=== PATIENT | male | born 1935 | race Hispanic/Latino ===

== ENCOUNTER 2016-12-27 00:01 | Emergency (ER) | payer OTHER, MEDICARE ==
[~2016-12-27] VITALS: Ht 188 cm; Wt 83.9 kg
[~2016-12-27 00:01] MED LIST: CLOPIDOGREL75 M1 PO; FLUTICASONE PRO16 GM NASB; GOLYTELY SOLU4000 ML PO; LOTEMAX5 GM OPH; MONTELUKAST SOD10 M1 PO; NAPROXEN375 M2 PO; PANTOPRAZOLE SO40 M1 PO; SIMVASTATIN40 M1 PO; TRIAZOLAM0.25 M1 PO
[2016-12-27 00:35] VITALS: BP 146/67
--- NOTE | 2016-12-27 01:37 | ED GI/GU/ABDOMINAL COMPLAINT ---
History of Present Illness General Chief Complaint: General Adult Stated Complaint: CONSTIPATION PER PT Source: patient, old records Exam Limitations: no limitations Vital Signs & Intake/Output Vital Signs & Intake/Output Vital Signs Date Time Temp Pulse Resp B/P Pulse O2 O2 Flow FiO2 Ox Delivery Rate 12/27 0035 97.9 64 20 146/67 94 Room Air Allergies Coded Allergies: NO KNOWN ALLERGIES (04/15/16) Reconcile Medications Clopidogrel Bisulfate (Clopidogrel) 75 MG TABLET 1 TAB PO DAILY HX DVT ( Reported) Fluticasone Propionate 16 GM SPRAY.SUSP 1 SPRAY NASB BID ALLERGIES (Reported) Loteprednol Etabonate (Lotemax) 5 GM DROPS.GEL 1 DROP OPH BID BOTH EYES ( Reported) Montelukast Sodium 10 MG TABLET 1 TAB PO DAILY ALLERGIES (Reported) Naproxen 375 MG TABLET 1 TAB PO BID PRN PAIN/INFLAMMATION with food Pantoprazole Sodium 40 MG TABLET.DR 1 TAB PO DAILY AC GI (Reported) Peg 3350/Na Sulf,Bicarb,Cl/KCl (Golytely Solution) 4,000 ML SOLN.RECON 8 OZ PO AD CONSTIPATION Simvastatin (Simvastatin*) 40 MG TABLET 1 TAB PO QPM CHOLESTEROL (Reported) Triazolam 0.25 MG TABLET 1 TAB PO QPM SLEEP (Reported) Triage Note: 81YO MALE TO RM 5 FROM WR W/CO CONSTIPATION X 1 WEEK. Triage Nurses Notes Reviewed? yes Onset: Last week Duration: day(s):, constant, continues in ED Timing: recent history Quality/Severity: fullness, moderate Location: generalized abdomen Radiation: no radiation Activities at Onset: none Prior Abdominal Problems: similar symptoms Past Sexual History: Unobtainable at this time Modifying Factors: Worsens With: eating. Associated Symptoms: abdominal pain, loss of appetite HPI: Patient reports difficulty with moving bowels over the last week reporting passing small pellets. He denies fever chills nausea vomiting diarrhea abdominal pain headache dysuria rash bleeding. Past History Travel History Traveled to [place] past 21 day Yes Medical History Any Pertinent Medical History? see below for history Neurological: NONE EENT: NONE Cardiovascular: NONE Respiratory: NONE Gastrointestinal: constipation Hepatic: NONE Renal: NONE Musculoskeletal: osteoarthritis Psychiatric: NONE Endocrine: NONE Surgical History Surgical History: non-contributory Psychosocial History What is your primary language Armenian Tobacco Use: Current Daily Use Daily Tobacco Use Amount/Type: => 5 Cigarettes daily Family History Hx Contributory? No Review of Systems Review of Systems Constitutional: Reports: no symptoms. EENTM: Reports: no symptoms. Respiratory: Reports: no symptoms. Cardiovascular: Reports: no symptoms. GI: Reports: see HPI, constipation. Genitourinary: Reports: no symptoms. Musculoskeletal: Reports: no symptoms. Skin: Reports: no symptoms. Neurological/Psychological: Reports: no symptoms. Hematologic/Endocrine: Reports: no symptoms. Immunologic/Allergic: Reports: no symptoms. All Other Systems: Reviewed and Negative Physical Exam Physical Exam General Appearance: well developed/nourished, alert, awake, anxious, mild distress Head: atraumatic, normal appearance Eyes: Bilateral: normal appearance, PERRL, EOMI, normal inspection. Ears, Nose, Throat, Mouth: hearing grossly normal, moist mucous membrane Neck: normal inspection, supple, full range of motion, normal alignment Respiratory: normal breath sounds, chest non-tender, no respiratory distress, quiet respiration, lungs clear Cardiovascular: regular rate/rhythm, normal peripheral pulses, norml femoral pulses equa Peripheral Pulses: 4+ carotid (R), 4+ carotid (L) Gastrointestinal: normal bowel sounds, soft, non-tender, no organomegaly Male Genitals: normal genitalia Back: normal inspection, normal range of motion, no vertebral tenderness Extremities: normal range of motion, no ligament instability Neurologic/Psych: no motor/sensory deficits, awake, alert, normal gait, pecan sheller II- XII nml as tested Skin: intact, normal color, warm/dry Core Measures ACS in differential dx? No Severe Sepsis Present: No Septic Shock Present: No Progress Differential Diagnosis: SBO, constipation Plan of Care: Orders Procedure Date/time Status Enema 12/27 210 Active Initial ED EKG: none Departure Departure Time of Disposition: 222 Disposition: HOME OR SELF CARE Condition: Stable Clinical Impression Primary Impression: Constipation Qualifiers: Constipation type: unspecified constipation type Qualified Code: K59.00 - Constipation, unspecified Referrals: BETY WHITE,DANETTE Urias (PCP/Family) Departure Forms: Customer Survey General Discharge Information Prescriptions: Current Visit Scripts Polyethylene Glycol 3350 (Miralax) 17 GM PO DAILY #255 GM mix with water, juice, soda, coffee or tea until stools soft and regular
--- NOTE | 2016-12-27 02:16 | RADIOLOGY REPORT ---
EXAMINATION: XR ABDOMEN MULTIPLE VIEWS CLINICAL INDICATION: Recurrent constipation with no stool for one week. COMPARISON: 10/07/2016 TECHNIQUE: 2 views of the abdomen FINDINGS: Nonobstructive bowel gas pattern. Gas is seen within nondilated colon. No significant stool burden. No free air on the upright view. Degenerative changes of the spine. IMPRESSION: Nonobstructive bowel gas pattern. No significant abnormal stool burden.
[2016-12-27] MEDS ORDERED: MIRALAX119 GM PO (02:26)
[2017-04-03] MEDS ORDERED: CIPRO500 M1 PO (04:01)
== END 2016-12-27 02:57 ==
LOC: ERH 00:01
DX: K59.00 Constipation, unspecified (principal)
CPT/HCPCS: 74020

== ENCOUNTER 2017-01-17 14:47 | Emergency (ER) | payer OTHER, MEDICARE ==
[~2017-01-17] VITALS: Ht 188 cm; Wt 79.4 kg
[~2017-01-17 14:47] MED LIST changes: +MIRALAX119 GM PO
--- NOTE | 2017-01-17 15:05 | ED GENERAL ADULT ---
History of Present Illness General Chief Complaint: General Adult Stated Complaint: BIBA FOR PSYCH EVAL AND CHEST PAIN Source: patient, EMS Exam Limitations: patient refusing to answer most questions Vital Signs & Intake/Output Vital Signs & Intake/Output Vital Signs Date Time Temp Pulse Resp B/P Pulse O2 O2 Flow FiO2 Ox Delivery Rate 01/17 1658 98.3 89 15 156/78 100 Room Air 01/17 1655 99 Room Air 01/17 1508 96.8 77 22 184/84 99 Room Air ED Intake and Output 01/18 0000 01/17 1200 Intake Total 0 Output Total Balance 0 Intake, Oral 0 Patient 175 lb Weight Allergies Coded Allergies: No Known Allergies (01/17/17) Reconcile Medications Clopidogrel Bisulfate (Clopidogrel) 75 MG TABLET 1 TAB PO DAILY HX DVT ( Reported) Donepezil HCl (Aricept) 10 MG TABLET 1 TAB PO QPM DEMENTIA (Reported) Fluticasone Propionate 16 GM SPRAY.SUSP 1 SPRAY NASB BID ALLERGIES (Reported) Linaclotide (Linzess) 145 MCG CAPSULE 1 CAP PO DAILY GI (Reported) Loteprednol Etabonate (Lotemax) 5 GM DROPS.GEL 1 DROP OPH BID BOTH EYES ( Reported) Naproxen 375 MG TABLET 1 TAB PO BID PRN PAIN/INFLAMMATION with food Pantoprazole Sodium 40 MG TABLET.DR 1 TAB PO DAILY AC GI (Reported) Sertraline HCl 100 MG TABLET 1 TAB PO DAILY MENTAL HEALTH (Reported) Simvastatin (Simvastatin*) 40 MG TABLET 1 TAB PO QPM CHOLESTEROL (Reported) Tamsulosin HCl 0.4 MG CAP.ER.24H 1 CAP PO DAILY PROSTATE (Reported) Triazolam 0.25 MG TABLET 1 TAB PO QPM SLEEP (Reported) Triage Nurses Notes Reviewed? yes HPI: Patient is a 81-year-old male brought in by ambulance for evaluation of abnormal EKG at an urgent care clinic. Patient reports that he went to the urgent care clinic due to nasal congestion and cough. Patient reports brief right-sided chest pain associated with his cough. Pain is currently 0 out of 10. Symptoms police were called. Patient became very upset at the urgent care staff when told that there would be transferring him to the hospital. No dyspnea or chest pain with exertion, patient reports intermittent bilateral lower extremity pain when walking up 1-2 flights of stairs that improves with rest. Patient refusing to answer questions regarding medical history, medications, or if he has a emergency room nurse. (DHEERAJ GLOVER) Past History Travel History Traveled to [place] past 21 day No Medical History Any Pertinent Medical History? see below for history Neurological: dementia EENT: NONE Cardiovascular: NONE Respiratory: NONE Gastrointestinal: constipation Hepatic: NONE Renal: NONE Musculoskeletal: osteoarthritis Psychiatric: NONE Endocrine: NONE Surgical History Surgical History: non-contributory Psychosocial History What is your primary language Maori Tobacco Use: Current Daily Use Daily Tobacco Use Amount/Type: => 5 Cigarettes daily Family History Hx Contributory? No (unknown, patient not answering) (DHEERAJ GLOVER) Review of Systems Review of Systems Constitutional: Denies: chills, fever. EENTM: Reports: nasal congestion. Respiratory: Reports: cough. Denies: short of breath. Cardiovascular: Reports: see HPI. GI: Reports: no symptoms. Genitourinary: Reports: no symptoms. Musculoskeletal: Reports: no symptoms. Skin: Reports: no symptoms. Neurological/Psychological: Reports: dementia. Hematologic/Endocrine: Reports: no symptoms. Immunologic/Allergic: Reports: no symptoms. (DHEERAJ GLOVER) Physical Exam Physical Exam General Appearance: well developed/nourished, alert, awake Head: atraumatic, normal appearance Eyes: Bilateral: normal appearance, PERRL, EOMI. Ears, Nose, Throat: hearing grossly normal Neck: normal inspection, supple, full range of motion Respiratory: normal breath sounds, no respiratory distress, lungs clear Cardiovascular: regular rate/rhythm, no appreciable murmur Gastrointestinal: soft, non-tender Back: normal inspection, normal range of motion Extremities: normal inspection, normal capillary refill, normal range of motion, no edema Neurologic/Psych: awake, alert, patient refusing to answer approximately 50% of questions, refusing to answer questions regarding medical history. Possible paranoia Skin: intact, normal color, warm/dry Core Measures ACS in differential dx? Yes ASA ordered for poss ACS? No-ACS ruled out CVA/TIA Diagnosis: No Severe Sepsis Present: No Septic Shock Present: No (DEHERAJ GLOVER) Progress Differential Diagnoses I considered the following diagnoses in my evaluation of the patient: Sinusitis, bronchitis, pneumonia, acute coronary syndrome, dementia Plan of Care: Patient was seen and evaluated with CHIN Sims. Patient has history of mild dementia but is awake alert and oriented 2. He is refusing to have his blood drawn because he states his chest pain is only when he coughs. He is very frustrated that the people at the urgent care did not listen to him and mandated that he come to the hospital. He spoke to his son who is trying to send somebody to come get him to pick him up. He states that he currently has no chest pain he is not short of breath. Patient is ambulatory with steady gait. Heis addressed. I spoke to the son on the phone who states that his father does have a diagnosis of dementia and usually does pretty well on his own. Occasionally has episodes similar to this. He thinks that he is safe at home. I discussed with case management who also discussed with the son and we'll be setting up home care services. At this point cannot hold the patient against his own will and force him to do blood work that he doesn't want stay. I advised him the risks of chest pain and the reason that he was sent to the hospital for evaluation. He states he understands and will follow up with his primary care doctor.01/17/2017 3:30:47 PM: Patient refusing blood work. Discussed abnormal ekg with patient and concern related heart. Patient continues to decline ekg, will not answer whether or not he has seen a emergency room nurse previously. No acute changes on ekgs [address] Cuellar. 01/17/2017 4:02:29 PM: No active chest pain, pain only with cough. Patient refusing blood work. Patient is alert, likely mild dementia, but appears appropriately oriented. Patient evaluated by Dr. Cuellar. Dr. Cuellar contacting patient's son to ensure safe discharge. (DHEERAJ GLOVER) Pre-Hospital EKG: from urgent care clinic, 01/17/2017 at 1306: normal sinus rhythm approximately 60 bpm normal axis, less than [address] elevation in V1 and V2, Q waves in V1 and V2. Initial ED EKG: normal sinus rhythm 71 bpm normal axis, normal intervals, less than [address] elevation in V1 and V2, no acute changes from EKG from urgent care clinic from 1306 today. No previous ekg for comparison Rhythm Strip: patient refusing awake overnight monitor (DHEERAJ GLOVER) Differential Diagnoses I considered the following diagnoses in my evaluation of the patient: Plan of Care: Patient was seen and evaluated with CHIN Sims. Patient has history of mild dementia but is awake alert and oriented 2. He is refusing to have his blood drawn because he states his chest pain is only when he coughs. He is very frustrated that the people at the urgent care did not listen to him and mandated that he come to the hospital. He spoke to his son who is trying to send somebody to come get him to pick him up. He states that he currently has no chest pain he is not short of breath. Patient is ambulatory with steady gait. Heis addressed. I spoke to the son on the phone who states that his father does have a diagnosis of dementia and usually does pretty well on his own. Occasionally has episodes similar to this. He thinks that he is safe at home. I discussed with case management who also discussed with the son and we'll be setting up home care services. At this point cannot hold the patient against his own will and force him to do blood work that he doesn't want stay. I advised him the risks of chest pain and the reason that he was sent to the hospital for evaluation. He states he understands and will follow up with his primary care doctor. (EIDSON WHITE,BRIT) Departure Departure Disposition: HOME OR SELF CARE Condition: Stable Clinical Impression Primary Impression: Abnormal EKG Secondary Impressions: Nasal congestion Referrals: BETY WHITE,DANETTE Urias (PCP/Family) Additional Instructions: Follow-up with your primary doctor next week for further evaluation. Return to the emergency department immediately if chest pain, difficulty breathing, worsening of symptoms. Departure Forms: Customer Survey General Discharge Information (DHEERAJ GLOVER) PA/CAMPUS ADMINISTRATIVE ASSISTANT Co-Sign Statement Statement: ED Attending supervision documentation- [X] I saw and evaluated the patient. I have also reviewed all the pertinent lab results and diagnostic results. I agree with the findings and the plan of care as documented in the PA's/CAMPUS ADMINISTRATIVE ASSISTANT's documentation. [X] I have reviewed the ED Record and agree with the PA's/CAMPUS ADMINISTRATIVE ASSISTANT's documentation. [] Additions or exceptions (if any) to the PAs/CAMPUS ADMINISTRATIVE ASSISTANT's note and plan are summarized below: [] (BRIT CUELLAR MD) Critical Care Note Critical Care Note Critical Care Time: non-applicable (DHEERAJ GLOVER)
[2017-01-17] MEDS ORDERED: ARICEPT10 M1 PO (15:21)
[2017-01-17] MEDS ORDERED: LINZESS145 MC1 PO (15:22)
[2017-01-17] MEDS ORDERED: TAMSULOSIN HCL0.4 M1 PO (15:23)
[2017-01-17] MEDS ORDERED: SERTRALINE HCL100 MG PO (15:23)
[2017-01-17 16:58] VITALS: BP 156/78
[2017-04-03] MEDS ORDERED: CIPRO500 M1 PO (04:01)
== END 2017-01-17 16:59 ==
LOC: ERH 14:47
DX: R09.81 Nasal congestion (principal); R94.31 Abnormal electrocardiogram [ECG] [EKG]
CPT/HCPCS: 93005; 93010

== ENCOUNTER 2017-02-08 00:36 | Emergency (ER) | payer OTHER ==
[~2017-02-08] VITALS: Ht 188 cm; Wt 79.4 kg
[~2017-02-08 00:36] MED LIST changes: +ARICEPT10 M1 PO; +LINZESS145 MC1 PO; +SERTRALINE HCL100 MG PO; +TAMSULOSIN HCL0.4 M1 PO
--- NOTE | 2017-02-08 00:55 | ED GI/GU/ABDOMINAL COMPLAINT ---
History of Present Illness General Chief Complaint: General Adult Stated Complaint: "NO BOWEL MOVEMENT X5DAYS" Source: patient Exam Limitations: no limitations Vital Signs & Intake/Output Vital Signs & Intake/Output Vital Signs Date Time Temp Pulse Resp B/P B/P Pulse O2 O2 Flow FiO2 Mean Ox Delivery Rate 02/08 0042 96.5 60 20 147/63 96 Room Air Allergies Coded Allergies: No Known Allergies (01/17/17) Reconcile Medications Clopidogrel Bisulfate (Clopidogrel) 75 MG TABLET 1 TAB PO DAILY HX DVT ( Reported) Donepezil HCl (Aricept) 10 MG TABLET 1 TAB PO QPM DEMENTIA (Reported) Fluticasone Propionate 16 GM SPRAY.SUSP 1 SPRAY NASB BID ALLERGIES (Reported) Linaclotide (Linzess) 145 MCG CAPSULE 1 CAP PO DAILY GI (Reported) Loteprednol Etabonate (Lotemax) 5 GM DROPS.GEL 1 DROP OPH BID BOTH EYES ( Reported) Naproxen 375 MG TABLET 1 TAB PO BID PRN PAIN/INFLAMMATION with food Pantoprazole Sodium 40 MG TABLET.DR 1 TAB PO DAILY AC GI (Reported) Sertraline HCl 100 MG TABLET 1 TAB PO DAILY MENTAL HEALTH (Reported) Simvastatin (Simvastatin*) 40 MG TABLET 1 TAB PO QPM CHOLESTEROL (Reported) Tamsulosin HCl 0.4 MG CAP.ER.24H 1 CAP PO DAILY PROSTATE (Reported) Triazolam 0.25 MG TABLET 1 TAB PO QPM SLEEP (Reported) Triage Note: PT TO ED C/O CONSTIPATION. NO BM FOR 5 DAYS, USUALLY GOES EVERY 3 DAYS. DENIES NAUSEA Triage Nurses Notes Reviewed? yes Duration: day(s):, waxing and waning Timing: recent history Quality/Severity: cramping Location: generalized abdomen Radiation: no radiation Activities at Onset: none Prior Abdominal Problems: similar symptoms Modifying Factors: Worsens With: other (constipation). Associated Symptoms: abdominal pain HPI: 81-year-old gentleman in prior good health presents with constipation for the past 5 days. He states that he has not had a bowel movement in the past 5 days, and that he "feels full." He has not been straining. He has no nausea vomiting diarrhea chest pain shortness of breath or syncopal type symptoms. His no abdominal pain. Past History Travel History Traveled to [place] past 21 day No Medical History Any Pertinent Medical History? see below for history Neurological: dementia EENT: NONE Cardiovascular: NONE Respiratory: NONE Gastrointestinal: constipation Hepatic: NONE Renal: NONE Musculoskeletal: osteoarthritis Psychiatric: NONE Endocrine: NONE Surgical History Surgical History: non-contributory Psychosocial History What is your primary language Burkinan Tobacco Use: Current Daily Use Daily Tobacco Use Amount/Type: => 5 Cigarettes daily ETOH Use: denies use Illicit Drug Use: denies illicit drug use Family History Hx Contributory? No Review of Systems Review of Systems Constitutional: Reports: no symptoms. EENTM: Reports: no symptoms. Respiratory: Reports: no symptoms. Cardiovascular: Reports: no symptoms. GI: Reports: no symptoms. Genitourinary: Reports: no symptoms. Musculoskeletal: Reports: no symptoms. Skin: Reports: no symptoms. Neurological/Psychological: Reports: no symptoms. Hematologic/Endocrine: Reports: no symptoms. Immunologic/Allergic: Reports: no symptoms. All Other Systems: Reviewed and Negative Physical Exam Physical Exam General Appearance: well developed/nourished, no apparent distress Head: atraumatic, normal appearance Eyes: Bilateral: normal appearance. Ears, Nose, Throat, Mouth: hearing grossly normal Neck: normal inspection, supple, full range of motion Respiratory: normal breath sounds, chest non-tender, no respiratory distress, quiet respiration, lungs clear Cardiovascular: regular rate/rhythm Gastrointestinal: normal bowel sounds, soft, non-tender, no significant distention Rectal: normal inspection, normal rectal tone, heme negative stool, normal amount of stool in rectal vault Back: normal inspection Extremities: normal range of motion Neurologic/Psych: no motor/sensory deficits, awake, alert, oriented x 3 Skin: intact, normal color, warm/dry Core Measures ACS in differential dx? No Severe Sepsis Present: No Septic Shock Present: No Progress Differential Diagnosis: constipation versus early bowel syndrome versus other Plan of Care: Patient given Fleet enema Diagnostic Imaging: Viewed by Me: Radiology Read. Discussed w/RAD: Radiology Read. Radiology Impression: abd xray... normal amount of stool... full report below. Initial ED EKG: none Comments: PATIENT: JOE HORN JR PRESENT AGE: 81 PATIENT ACCOUNT NO: [id number] : 37 LOCATION: [facility] ORDERING PHYSICIAN: AMISHA DEL VALLE MD SERVICE DATE: 02/08/17 EXAM TYPE: RAD - [id number] VIEWS EXAMINATION: XR ABDOMEN MULTIPLE VIEWS CLINICAL INDICATION: Constipation COMPARISON: 12/27/2016 TECHNIQUE: 2 views of the abdomen FINDINGS: Normal bowel gas pattern without dilated loops of bowel. No air-fluid levels. No abnormal colonic stool burden. The lung bases are grossly clear. No free air. Degenerative changes of the spine. Spinal hardware at L5-S1. IMPRESSION: Nonobstructive bowel gas pattern. No significant abnormal stool burden. DICTATED BY: PALMIRA WHITE,MARY KATE DATE/TIME DICTATED:02/08/17122 TWITCHELL OPERATOR:CIRA DATE/TIME TRANSCRIBED:02/08/17122 CONFIDENTIAL, DO NOT COPY WITHOUT APPROPRIATE AUTHORIZATION. <Electronically signed in Other Vendor System> SIGNED BY: PALMIRA WHITE,MARY KATE 02/08 Departure Departure Disposition: HOME OR SELF CARE Condition: Stable Clinical Impression Primary Impression: Constipation Referrals: BETY WHITE,DANETTE Urias (PCP/Family) Departure Forms: Customer Survey General Discharge Information Comments pt had fleet enema... now feels better.... I doubt significant constipation, perhaps he has IBS or rectal dysenergia. I counseled pt to follow up with his ward maid and try miralax qday to effect a bowel movement a day.
--- NOTE | 2017-02-08 01:27 | RADIOLOGY REPORT ---
EXAMINATION: XR ABDOMEN MULTIPLE VIEWS CLINICAL INDICATION: Constipation COMPARISON: 12/27/2016 TECHNIQUE: 2 views of the abdomen FINDINGS: Normal bowel gas pattern without dilated loops of bowel. No air-fluid levels. No abnormal colonic stool burden. The lung bases are grossly clear. No free air. Degenerative changes of the spine. Spinal hardware at L5-S1. IMPRESSION: Nonobstructive bowel gas pattern. No significant abnormal stool burden.
[2017-02-08 01:48] VITALS: BP 135/69
[2017-04-03] MEDS ORDERED: CIPRO500 M1 PO (04:01)
== END 2017-02-08 01:50 ==
LOC: ERH 00:36
DX: K59.00 Constipation, unspecified (principal)
CPT/HCPCS: 74020

== ENCOUNTER 2017-02-08 22:38 | Emergency (ER) | payer OTHER, MEDICARE ==
[2017-02-08 22:45] VITALS: BP 151/75
[2017-04-03] MEDS ORDERED: CIPRO500 M1 PO (04:01)
== END 2017-02-09 | disposition admitted as inpatient to this hospital (09) ==
LOC: ERH 22:38
DX: K56.49 Other impaction of intestine (principal)

== ENCOUNTER 2017-02-16 02:20 | Emergency (ER) | payer OTHER, MEDICARE ==
[~2017-02-16] VITALS: Ht 188 cm; Wt 77.1 kg
--- NOTE | 2017-02-16 02:31 | ED GI/GU/ABDOMINAL COMPLAINT ---
History of Present Illness General Chief Complaint: General Adult Stated Complaint: "PER PT CONSTIPATED FOR FOUR DAYS" Source: patient, old records Exam Limitations: no limitations Vital Signs & Intake/Output Vital Signs & Intake/Output Vital Signs Date Time Temp Pulse Resp B/P B/P Pulse O2 O2 Flow FiO2 Mean Ox Delivery Rate 02/16 0231 97.7 60 16 132/63 95 Room Air Room Air Allergies Coded Allergies: No Known Allergies (01/17/17) Reconcile Medications Clopidogrel Bisulfate (Clopidogrel) 75 MG TABLET 1 TAB PO DAILY HX DVT ( Reported) Donepezil HCl (Aricept) 10 MG TABLET 1 TAB PO QPM DEMENTIA (Reported) Fluticasone Propionate 16 GM SPRAY.SUSP 1 SPRAY NASB BID ALLERGIES (Reported) Linaclotide (Linzess) 145 MCG CAPSULE 1 CAP PO DAILY GI (Reported) Loteprednol Etabonate (Lotemax) 5 GM DROPS.GEL 1 DROP OPH BID BOTH EYES ( Reported) Naproxen 375 MG TABLET 1 TAB PO BID PRN PAIN/INFLAMMATION with food Pantoprazole Sodium 40 MG TABLET.DR 1 TAB PO DAILY AC GI (Reported) Sertraline HCl 100 MG TABLET 1 TAB PO DAILY MENTAL HEALTH (Reported) Simvastatin (Simvastatin*) 40 MG TABLET 1 TAB PO QPM CHOLESTEROL (Reported) Tamsulosin HCl 0.4 MG CAP.ER.24H 1 CAP PO DAILY PROSTATE (Reported) Triazolam 0.25 MG TABLET 1 TAB PO QPM SLEEP (Reported) Triage Nurses Notes Reviewed? yes Onset: Abrupt Duration: day(s): (4) Timing: recent history Quality/Severity: mild, moderate Location: generalized abdomen No Modifying Factors: none HPI: This is a 81-year-old male who presents to the ER for chief complaint of cut patient, last bowel movement 4 days ago. He states his been using over-the- counter stool softeners and laxatives without any success. Denies any abdominal pain fever chills. Denies any nausea or vomiting. He states he had similar symptoms for which he came to the ER previously and received an enema with relief. Patient states that he "knows his full of stool". Patient has history of colonoscopy and states everything was normal. He states he does not want another colonoscopy. Past History Travel History Traveled to [place] past 21 day No Medical History Any Pertinent Medical History? see below for history Neurological: dementia EENT: NONE Cardiovascular: NONE Respiratory: NONE Gastrointestinal: constipation Hepatic: NONE Renal: NONE Musculoskeletal: osteoarthritis Psychiatric: NONE Endocrine: NONE Surgical History Surgical History: non-contributory Psychosocial History What is your primary language Sierra Leonean Family History Hx Contributory? No Review of Systems Review of Systems Constitutional: Denies: chills, fever. EENTM: Reports: no symptoms. Respiratory: Reports: no symptoms. Cardiovascular: Reports: no symptoms. GI: Reports: constipation. Denies: abdominal pain, bloating, nausea, vomiting. Genitourinary: Reports: no symptoms. Musculoskeletal: Reports: no symptoms. Skin: Reports: no symptoms. Neurological/Psychological: Reports: no symptoms. Hematologic/Endocrine: Denies: bruising, bleeding, polyuria, polydipsia. Immunologic/Allergic: Denies: splenectomy. All Other Systems: Reviewed and Negative Physical Exam Physical Exam General Appearance: alert, awake, anxious, thin Head: atraumatic, active bleeding Eyes: Bilateral: normal appearance, PERRL, EOMI. Ears, Nose, Throat, Mouth: hearing grossly normal, moist mucous membrane Neck: normal inspection, supple, full range of motion Respiratory: normal breath sounds, chest non-tender, no respiratory distress Cardiovascular: regular rate/rhythm Peripheral Pulses: 2+ radial (R), 2+ radial (L) Gastrointestinal: normal bowel sounds, soft, non-tender Back: normal inspection, normal range of motion Extremities: normal range of motion Neurologic/Psych: awake, alert, oriented x 3 Skin: intact, normal color, warm/dry Core Measures ACS in differential dx? No Severe Sepsis Present: No Septic Shock Present: No Progress Differential Diagnosis: cONSTIPATION, sbo, ILEUS Plan of Care: Current Medications Sig/Sherri Start time Last Medication Dose Stop Time Status Admin Sodium Phosphate 1 UNIT ONCE ONE 02/165 UNVr 02/16 0246 Fleet enema ordered. Abdomen is soft, nontender. Normal active bowel sounds. 3:33 AM PATIENT FEELING BETTER. WILL DISCHARGE HOME AT THIS TIME. ([facility]) Initial ED EKG: none Departure Departure Time of Disposition: 332 Disposition: HOME OR SELF CARE Condition: Stable Clinical Impression Primary Impression: Constipation Referrals: PATIENT HAS NO PRIMARY CARE DR (PCP/Family) Additional Instructions: Continue your [id number] stool softeners. Drink plenty of fluids. Follow -up with your doctor in the office. Return as needed. Departure Forms: Customer Survey General Discharge Information
[2017-02-16 03:35] VITALS: BP 126/64
[2017-04-03] MEDS ORDERED: CIPRO500 M1 PO (04:01)
== END 2017-02-16 03:39 ==
LOC: ERH 02:20
DX: K59.00 Constipation, unspecified (principal)

== ENCOUNTER 2017-02-25 02:22 | Emergency (ER) | payer OTHER, MEDICARE ==
[~2017-02-25] VITALS: Ht 185.4 cm; Wt 72.6 kg
--- NOTE | 2017-02-25 02:35 | ED GI/GU/ABDOMINAL COMPLAINT ---
History of Present Illness General Chief Complaint: General Adult Stated Complaint: pt c/o constipation hx of same Source: patient Exam Limitations: no limitations Vital Signs & Intake/Output Vital Signs & Intake/Output Vital Signs Date Time Temp Pulse Resp B/P B/P Pulse O2 O2 Flow FiO2 Mean Ox Delivery Rate 02/25 0240 97.2 54 18 158/62 95 Room Air Allergies Coded Allergies: No Known Allergies (01/17/17) Reconcile Medications Clopidogrel Bisulfate (Clopidogrel) 75 MG TABLET 1 TAB PO DAILY HX DVT ( Reported) Donepezil HCl (Aricept) 10 MG TABLET 1 TAB PO QPM DEMENTIA (Reported) Fluticasone Propionate 16 GM SPRAY.SUSP 1 SPRAY NASB BID ALLERGIES (Reported) Linaclotide (Linzess) 145 MCG CAPSULE 1 CAP PO DAILY GI (Reported) Loteprednol Etabonate (Lotemax) 5 GM DROPS.GEL 1 DROP OPH BID BOTH EYES ( Reported) Magnesium Citrate (Citrate Of Magnesia) 300 ML SOLUTION 296 ML PO BID CONSTIPATION DISPENSE 12 BOTTLES Naproxen 375 MG TABLET 1 TAB PO BID PRN PAIN/INFLAMMATION with food Pantoprazole Sodium 40 MG TABLET.DR 1 TAB PO DAILY AC GI (Reported) Sennosides (Senna) 8.6 MG TABLET 1-2 TAB PO BID CONSTIPATION Sertraline HCl 100 MG TABLET 1 TAB PO DAILY MENTAL HEALTH (Reported) Simvastatin (Simvastatin*) 40 MG TABLET 1 TAB PO QPM CHOLESTEROL (Reported) Tamsulosin HCl 0.4 MG CAP.ER.24H 1 CAP PO DAILY PROSTATE (Reported) Triazolam 0.25 MG TABLET 1 TAB PO QPM SLEEP (Reported) Triage Nurses Notes Reviewed? yes Onset: Gradual Duration: day(s): Timing: recent history Quality/Severity: cramping Location: generalized abdomen Radiation: no radiation Prior Abdominal Problems: similar symptoms Modifying Factors: Worsens With: other (difficulty defecating). Associated Symptoms: constipation HPI: 81-year-old gentleman with constipation, presents with episode of constipation. He states that he has had scant bowel movements for the past 4 days. He has no nausea vomiting diarrhea fever chills shortness of breath or chest pain. He states that he has been trying MiraLAX on occasion without effect. He asked for a Fleet enema. He is otherwise well. Past History Medical History Any Pertinent Medical History? see below for history Neurological: dementia EENT: NONE Cardiovascular: NONE Respiratory: NONE Gastrointestinal: constipation Hepatic: NONE Renal: NONE Musculoskeletal: osteoarthritis Psychiatric: NONE Endocrine: NONE Surgical History Surgical History: non-contributory Psychosocial History What is your primary language Macedonian Family History Hx Contributory? No Review of Systems Review of Systems Constitutional: Reports: no symptoms. EENTM: Reports: no symptoms. Respiratory: Reports: no symptoms. Cardiovascular: Reports: no symptoms. GI: Reports: no symptoms. Genitourinary: Reports: no symptoms. Musculoskeletal: Reports: no symptoms. Skin: Reports: no symptoms. Neurological/Psychological: Reports: no symptoms. Hematologic/Endocrine: Reports: no symptoms. Immunologic/Allergic: Reports: no symptoms. All Other Systems: Reviewed and Negative Physical Exam Physical Exam General Appearance: well developed/nourished Head: atraumatic, normal appearance Eyes: Bilateral: normal appearance. Ears, Nose, Throat, Mouth: hearing grossly normal Neck: normal inspection, supple, full range of motion Respiratory: normal breath sounds, chest non-tender, no respiratory distress Cardiovascular: regular rate/rhythm Gastrointestinal: normal bowel sounds, soft, non-tender, no organomegaly Rectal: normal inspection, normal rectal tone, heme negative stool Back: normal inspection Extremities: normal range of motion Neurologic/Psych: no motor/sensory deficits, awake, alert, oriented x 3 Core Measures ACS in differential dx? No Severe Sepsis Present: No Septic Shock Present: No Progress Differential Diagnosis: constipation versus other Plan of Care: Current Medications Sig/Sherri Start time Last Medication Dose Stop Time Status Admin Sodium Phosphate 1 UNIT ONCE ONE 02/25 0300 UNVr 02/25 0301 Initial ED EKG: none Departure Departure Disposition: HOME OR SELF CARE Condition: Stable Clinical Impression Primary Impression: Constipation Referrals: PATIENT HAS NO PRIMARY CARE DR (PCP/Family) Departure Forms: Customer Survey General Discharge Information Prescriptions: Current Visit Scripts Magnesium Citrate (Citrate Of Magnesia) 296 ML PO BID #296 ML DISPENSE 12 BOTTLES Sennosides (Senna) 1-2 TAB PO BID #100 TAB Ref 1 Comments Upon review of prior x-rays, he has had only moderate to normal stool burden. He has never had obstruction. His labs have always been normal. His exam this morning is benign. The patient requests an enema. 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
[2017-02-25 02:40] VITALS: BP 158/62
[2017-02-25] MEDS ORDERED: CITRATE OF MAG300 ML PO (02:53)
[2017-02-25] MEDS ORDERED: SENNA8.6 M3 PO (02:53)
[2017-04-03] MEDS ORDERED: CIPRO500 M1 PO (04:01)
== END 2017-02-25 03:39 ==
LOC: ERH 02:22
DX: K59.00 Constipation, unspecified (principal)

== ENCOUNTER 2017-02-28 23:53 | Emergency (ER) | payer OTHER, MEDICARE ==
[~2017-02-28] VITALS: Ht 188 cm; Wt 74.8 kg
[~2017-02-28 23:53] MED LIST changes: +CITRATE OF MAG300 ML PO; +SENNA8.6 M3 PO
--- NOTE | 2017-03-01 00:32 | ED GI/GU/ABDOMINAL COMPLAINT ---
History of Present Illness General Chief Complaint: General Adult Stated Complaint: NO B/M X 4DAYS Source: patient Exam Limitations: no limitations Vital Signs & Intake/Output Vital Signs & Intake/Output Vital Signs Date Time Temp Pulse Resp B/P B/P Pulse O2 O2 Flow FiO2 Mean Ox Delivery Rate 03/01 0112 97.7 76 18 143/72 97 Room Air 02/28 2356 98.1 62 20 156/73 96 ED Intake and Output 03/01 0000 02/28 1200 Intake Total Output Total Balance Patient 165 lb Weight Allergies Coded Allergies: No Known Allergies (01/17/17) Reconcile Medications Ciprofloxacin HCl (Cipro) 500 MG TABLET 1 TAB PO BID PROSTATITIS Clopidogrel Bisulfate (Clopidogrel) 75 MG TABLET 1 TAB PO DAILY HX DVT ( Reported) Donepezil HCl (Aricept) 10 MG TABLET 1 TAB PO QPM DEMENTIA (Reported) Fluticasone Propionate 16 GM SPRAY.SUSP 1 SPRAY NASB BID ALLERGIES (Reported) Linaclotide (Linzess) 145 MCG CAPSULE 1 CAP PO DAILY GI (Reported) Loteprednol Etabonate (Lotemax) 5 GM DROPS.GEL 1 DROP OPH BID BOTH EYES ( Reported) Magnesium Citrate (Citrate Of Magnesia) 300 ML SOLUTION 296 ML PO BID CONSTIPATION DISPENSE 12 BOTTLES Naproxen 375 MG TABLET 1 TAB PO BID PRN PAIN/INFLAMMATION with food Pantoprazole Sodium 40 MG TABLET.DR 1 TAB PO DAILY AC GI (Reported) Sennosides (Senna) 8.6 MG TABLET 1-2 TAB PO BID CONSTIPATION Sertraline HCl 100 MG TABLET 1 TAB PO DAILY MENTAL HEALTH (Reported) Simvastatin (Simvastatin*) 40 MG TABLET 1 TAB PO QPM CHOLESTEROL (Reported) Tamsulosin HCl 0.4 MG CAP.ER.24H 1 CAP PO DAILY PROSTATE (Reported) Triazolam 0.25 MG TABLET 1 TAB PO QPM SLEEP (Reported) Triage Nurses Notes Reviewed? yes Onset: Gradual Duration: day(s): Timing: single episode today Location: perirectal Radiation: no radiation Activities at Onset: none Prior Abdominal Problems: similar symptoms Modifying Factors: Worsens With: defecating. Associated Symptoms: patient reports feeling pressure in his perirectal region HPI: 41-year-old gentleman with history of recurrent constipation presents with recurrence of lower rectal pressure. He states, "it feels like I need to go to the bathroom. But nothing comes out." He states that he was seen in the emergency department 4 days ago by myself. He was given magnesium citrate and, "I had a large bowel movement later that day and it felt great. I was feeling really well. But then over the next day started feeling the lower pain again." He notes no dysuria nausea vomiting chills diarrhea. Past History Medical History Any Pertinent Medical History? see below for history Neurological: dementia EENT: NONE Cardiovascular: NONE Respiratory: NONE Gastrointestinal: constipation Hepatic: NONE Renal: NONE Musculoskeletal: osteoarthritis Psychiatric: NONE Endocrine: NONE Surgical History Surgical History: non-contributory Psychosocial History What is your primary language Montenegrin Family History Hx Contributory? No Review of Systems Review of Systems Constitutional: Reports: no symptoms. EENTM: Reports: no symptoms. Respiratory: Reports: no symptoms. Cardiovascular: Reports: no symptoms. GI: Reports: no symptoms. Genitourinary: Reports: no symptoms. Musculoskeletal: Reports: no symptoms. Skin: Reports: no symptoms. Neurological/Psychological: Reports: no symptoms. Hematologic/Endocrine: Reports: no symptoms. Immunologic/Allergic: Reports: no symptoms. All Other Systems: Reviewed and Negative Physical Exam Physical Exam General Appearance: well developed/nourished, mild distress Head: atraumatic, normal appearance Eyes: Bilateral: normal appearance. Ears, Nose, Throat, Mouth: hearing grossly normal Neck: normal inspection, supple, full range of motion, normal alignment Respiratory: normal breath sounds, chest non-tender, no respiratory distress, quiet respiration, lungs clear Gastrointestinal: normal bowel sounds, soft, non-tender, no organomegaly Rectal: tender prostate. Empty rectal vault. Guaiac negative Back: normal inspection Extremities: normal range of motion Neurologic/Psych: no motor/sensory deficits, awake, alert, oriented x 3 Skin: intact, normal color, warm/dry Core Measures ACS in differential dx? No Severe Sepsis Present: No Septic Shock Present: No Progress Differential Diagnosis: constipation versus prostatitis versus proctitis versus UTI versus other Plan of Care: Laboratory Tests 03/01/17 0034: Total Bilirubin Cancelled, Direct Bilirubin Cancelled, AST Cancelled, ALT Cancelled, Alkaline Phosphatase Cancelled, Total Protein Cancelled, Albumin Cancelled, CBC w Diff Cancelled, WBC Cancelled, RBC Cancelled, Hgb Cancelled, Hct Cancelled, MCV Cancelled, MCH Cancelled, RDW Cancelled, Plt Count Cancelled, MPV Cancelled, PUBS MCHC Cancelled Initial ED EKG: none Departure Departure Disposition: HOME OR SELF CARE Condition: Stable Clinical Impression Primary Impression: Prostatitis Referrals: PATIENT HAS NO PRIMARY CARE DR (PCP/Family) Departure Forms: Customer Survey General Discharge Information Prescriptions: Current Visit Scripts Ciprofloxacin HCl (Cipro) 1 TAB PO BID #20 TAB Comments 's custody at length with patient. Exam tonight reveals a very tender prostate. I suggested getting labs and possibly a CAT scan. He declines. He would like to give a trial of antibiotics and will follow-up to see me in the emergency department in 2 days if his symptoms continue.
[2017-03-01] MEDS ORDERED: CIPRO500 M1 PO (01:04)
[2017-03-01 01:12] VITALS: BP 143/72
[2017-03-02] MEDS ORDERED: CIPRO500 M1 PO (21:50)
[2017-04-03] MEDS ORDERED: CIPRO500 M1 PO (04:01)
== END 2017-03-01 01:13 ==
LOC: ERH 23:53
DX: N41.9 Inflammatory disease of prostate, unspecified (principal)

== ENCOUNTER 2017-03-02 04:04 | Emergency (ER) | payer OTHER, MEDICARE ==
[~2017-03-02 04:04] MED LIST changes: +CIPRO500 M1 PO
[2017-03-02 04:14] VITALS: BP 143/62
[2017-03-02] MEDS ORDERED: CIPRO500 M1 PO (21:50)
[2017-04-03] MEDS ORDERED: CIPRO500 M1 PO (04:01)
== END 2017-03-02 04:33 | disposition admitted as inpatient to this hospital (09) ==
LOC: ERH 04:04
DX: Z76.0 Encounter for issue of repeat prescription (principal); Z53.21 Procedure and treatment not carried out due to patient leaving prior to being seen by health care provider

== ENCOUNTER 2017-03-02 18:15 | Emergency (ER) | payer OTHER, MEDICARE ==
[~2017-03-02] VITALS: Ht 188 cm; Wt 74.8 kg
--- NOTE | 2017-03-02 19:27 | ED GI/GU/ABDOMINAL COMPLAINT ---
History of Present Illness General Chief Complaint: General Adult Stated Complaint: LEFT SIDED PAIN, HERE TO SEE DR DEL VALLE Source: patient Exam Limitations: no limitations Vital Signs & Intake/Output Vital Signs & Intake/Output Vital Signs Date Time Temp Pulse Resp B/P B/P Pulse O2 O2 Flow FiO2 Mean Ox Delivery Rate 03/025 97.5 52 16 174/72 99 Room Air 03/02 1825 97.6 74 15 129/56 95 Room Air Room Air Allergies Coded Allergies: No Known Allergies (03/02/17) Reconcile Medications Ciprofloxacin HCl (Cipro) 500 MG TABLET 1 TAB PO BID PROSTATITIS Ciprofloxacin HCl (Cipro) 500 MG TABLET 1 TAB PO BID prostatitis Clopidogrel Bisulfate (Clopidogrel) 75 MG TABLET 1 TAB PO DAILY HX DVT ( Reported) Donepezil HCl (Aricept) 10 MG TABLET 1 TAB PO QPM DEMENTIA (Reported) Fluticasone Propionate 16 GM SPRAY.SUSP 1 SPRAY NASB BID ALLERGIES (Reported) Linaclotide (Linzess) 145 MCG CAPSULE 1 CAP PO DAILY GI (Reported) Loteprednol Etabonate (Lotemax) 5 GM DROPS.GEL 1 DROP OPH BID BOTH EYES ( Reported) Magnesium Citrate (Citrate Of Magnesia) 300 ML SOLUTION 296 ML PO BID CONSTIPATION DISPENSE 12 BOTTLES Naproxen 375 MG TABLET 1 TAB PO BID PRN PAIN/INFLAMMATION with food Pantoprazole Sodium 40 MG TABLET.DR 1 TAB PO DAILY AC GI (Reported) Sennosides (Senna) 8.6 MG TABLET 1-2 TAB PO BID CONSTIPATION Sertraline HCl 100 MG TABLET 1 TAB PO DAILY MENTAL HEALTH (Reported) Simvastatin (Simvastatin*) 40 MG TABLET 1 TAB PO QPM CHOLESTEROL (Reported) Tamsulosin HCl 0.4 MG CAP.ER.24H 1 CAP PO DAILY PROSTATE (Reported) Triazolam 0.25 MG TABLET 1 TAB PO QPM SLEEP (Reported) Triage Note: PT TO ED FOR C/C OF BILATERAL LOWER ABD PAIN. PT REPORTS HE WAS TOLD TO COME BACK TO SEE DR. DEL VALLE IF NOT FEELING BETTER. PT REPORTS HE IS CONSTIPATED, LBM FIVE DAYS AGO. Triage Nurses Notes Reviewed? yes Onset: Gradual Duration: week(s):, waxing and waning Timing: recent history Quality/Severity: cramping Location: LOWER ABDOMEN Radiation: no radiation Modifying Factors: Improves With: defecating. Associated Symptoms: CONSTIPATION HPI: 81 yo gentleman history of constipation was recently diagnosed with prostatitis 2 days ago. He presents with continued lower perirectal discomfort. 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 He continues to feel the symptoms. He has no fever chills nausea vomiting diarrhea. He feels like he has pressure in his lower rectal area. He has occasional constipation, although his stools have been soft and he has used several rounds of miralax, and magnesium citrate. Past History Travel History Traveled to [place] past 21 day No Medical History Any Pertinent Medical History? see below for history Neurological: dementia EENT: NONE Cardiovascular: NONE Respiratory: NONE Gastrointestinal: constipation Hepatic: NONE Renal: NONE Musculoskeletal: osteoarthritis Psychiatric: NONE Endocrine: NONE Surgical History Surgical History: non-contributory Psychosocial History What is your primary language Chinese Tobacco Use: Current Daily Use Daily Tobacco Use Amount/Type: => 5 Cigarettes daily ETOH Use: denies use Illicit Drug Use: denies illicit drug use Family History Hx Contributory? No Review of Systems Review of Systems Constitutional: Reports: no symptoms. EENTM: Reports: no symptoms. Respiratory: Reports: no symptoms. Cardiovascular: Reports: no symptoms. GI: Reports: no symptoms. Genitourinary: Reports: no symptoms. Musculoskeletal: Reports: no symptoms. Skin: Reports: no symptoms. Neurological/Psychological: Reports: no symptoms. Hematologic/Endocrine: Reports: no symptoms. Immunologic/Allergic: Reports: no symptoms. All Other Systems: Reviewed and Negative Physical Exam Physical Exam General Appearance: well developed/nourished, mild distress Head: atraumatic, normal appearance Eyes: Bilateral: normal appearance. Ears, Nose, Throat, Mouth: hearing grossly normal Neck: normal inspection, supple, full range of motion, normal alignment Respiratory: normal breath sounds, chest non-tender, no respiratory distress, quiet respiration, lungs clear Cardiovascular: regular rate/rhythm Gastrointestinal: normal bowel sounds, soft, non-tender, no organomegaly Back: normal inspection, normal range of motion, vertebral tenderness Extremities: normal range of motion Neurologic/Psych: no motor/sensory deficits, awake, alert, oriented x 3 Skin: intact, normal color, warm/dry Core Measures ACS in differential dx? No Severe Sepsis Present: No Septic Shock Present: No Progress Differential Diagnosis: prostatitis vs uti vs constipation. Plan of Care: Orders Procedure Date/time Status URINALYSIS 03/02 1942 Complete LIPASE 03/02 1942 Complete COMPREHENSIVE METABOLIC PANEL 03/02 1942 Complete CBC WITHOUT DIFFERENTIAL 03/02 1942 Complete AMYLASE 03/02 1942 Complete Laboratory Tests 03/02/172046: Anion Gap 6, Estimated GFR > 60, BUN/Creatinine Ratio 21.4, Glucose 116 H, Calcium 9.0, Total Bilirubin 0.4, AST 20, ALT 39, Alkaline Phosphatase 108, Total Protein 6.1 L, Albumin 3.7, Globulin 2.4, Albumin/Globulin Ratio 1.5, Amylase 31, Lipase 93, CBC w Diff NO MAN DIFF REQ, RBC 4.05 L, MCV 93.9, MCH 31.4 H, RDW 15.6 H, MPV 6.9 L, Gran % 78.9 H, Lymphocytes % 9.6 L, Monocytes % 9.1, Eosinophils % 2.1, Basophils % 0.3, Absolute Granulocytes 7.6 H, Absolute Lymphocytes 0.9 L, Absolute Monocytes 0.9 H, Absolute Eosinophils 0.2, Absolute Basophils 0, PUBS MCHC 33.5 03/02/17 2001: Urine Color STRAW, Urine Clarity CLEAR, Urine pH 7.5, Ur Specific [place] 1.020, Urine Protein NEG, Urine Ketones NEG, Urine Nitrite NEG, Urine Bilirubin NEG, Urine Urobilinogen 0.2, Ur Leukocyte Esterase NEG, Ur Microscopic EXAM NOT REQUIRED, Urine Hemoglobin NEG, Urine Glucose NEG Diagnostic Imaging: Viewed by Me: CT Scan. Discussed w/RAD: CT Scan. Radiology Impression: abd/pelvic ct... no acute changes... mild thickening of stomach. full report below. Initial ED EKG: none Comments: PATIENT: JOE HORN PRESENT AGE: 81 PATIENT ACCOUNT NO: [id number] : 37 LOCATION: [facility] ORDERING PHYSICIAN: AMISHA DEL VALLE MD SERVICE DATE: 03/02/17 EXAM TYPE: CAT - CT ABD & PELVIS W/O IV CONTRAS EXAMINATION: CT ABDOMEN AND PELVIS WITHOUT CONTRAST CLINICAL INFORMATION: Lower abdominal pain COMPARISON: Abdominal radiograph 02/08/2017, CT abdomen and pelvis 05/02/2016 TECHNIQUE: Multidetector volumetric imaging was performed from the superior aspect of the liver through the pubic symphysis. Sagittal and coronal reformatted images were obtained on the technologist's workstation. DLP: 292 mGy-cm FINDINGS: LUNG BASES: The visualized lung bases are unremarkable. LIVER, GALLBLADDER, AND BILIARY TREE: The liver is normal in size, shape, and attenuation. No focal hepatic lesion or biliary ductal dilatation is present. The gallbladder is unremarkable with no evidence of radiopaque gallstones, gallbladder wall thickening, or obvious pericholecystic inflammatory changes. PANCREAS: Unremarkable. SPLEEN: Unremarkable. ADRENAL GLANDS: Unremarkable. KIDNEYS AND URETERS: The kidneys are normal in size, shape, and attenuation. No hydronephrosis, hydroureter, or calculi seen. No perinephric stranding. BLADDER: Unremarkable. GASTROINTESTINAL TRACT: There is relative thickening of the wall of the stomach. This is concentric. This could additionally relate to the phase of the examination. There are numerous gas-filled loops of small and large bowel throughout the abdomen. No significant bowel dilatation to suggest obstruction. No free fluid or free air within the abdomen or pelvis. While no discrete appendix is visualized in the right lower quadrant, there are no acute inflammatory changes to suggest appendicitis. ABDOMINAL WALL: No significant hernia is appreciated. LYMPH NODES: Normal. VASCULAR: Moderate atherosclerotic calcification. PELVIC VISCERA: Prostate and seminal vesicles are unremarkable. OSSEOUS STRUCTURES: There is fusion of the L4 and L5 posterior elements secondary to a single ghazal with associated cortical screws. There is anterolisthesis present at the L4-L5 level measuring approximately 0.9 cm. There is mild intervertebral disc space narrowing at this level with associated vacuum disc phenomena. There is mild retrolisthesis at the L3-L4 level measuring 0.4 cm. Multilevel degenerative changes of the lower thoracic and lumbar spine are redemonstrated including mild intervertebral disc space narrowing and prominent anterior osteophytes. There is relative sparing of the L2-L3 level. IMPRESSION: 1. No specific findings to explain acute intra-abdominal or pelvic symptoms. The majority of the loops of colon are gas-filled. 2. Apparent mild thickening of the wall of the stomach. Correlation with symptoms is recommended. 3. Significant spondylosis of the lower thoracic and lumbar spine including grade 2 spondylolisthesis at the L4-L5 level. Grade 1 spondylolisthesis at the L3-L4 level. DICTATED BY: LUCY DIAZ MD DATE/TIME DICTATED:03/02/172010 DEPUTY SHERIFF CUSTODY:CIRA DATE/TIME TRANSCRIBED:03/02/172010 CONFIDENTIAL, DO NOT COPY WITHOUT APPROPRIATE AUTHORIZATION. <Electronically signed in Other Vendor System> SIGNED BY: LUCY DIAZ MD 03/02/172023 Departure Departure Disposition: HOME OR SELF CARE Condition: Stable Clinical Impression Primary Impression: Abdominal pain Secondary Impressions: Prostatitis Referrals: PATIENT HAS NO PRIMARY CARE DR (PCP/Family) Departure Forms: Customer Survey General Discharge Information Prescriptions: Current Visit Scripts Ciprofloxacin HCl (Cipro) 1 TAB PO BID #20 TAB Comments ., 22:15.... discussed findings and labs with patient at great length... pt with benign exam... pt safe for discharge... he will follow up with his pmd and fill his rx for cipro which I re-sent to [facility] (apparently his home pharmacy was unable to fill it). encouraged close follow up.
--- NOTE | 2017-03-02 20:24 | CT SCAN REPORT ---
EXAMINATION: CT ABDOMEN AND PELVIS WITHOUT CONTRAST CLINICAL INFORMATION: Lower abdominal pain COMPARISON: Abdominal radiograph 02/08/2017, CT abdomen and pelvis 05/02/2016 TECHNIQUE: Multidetector volumetric imaging was performed from the superior aspect of the liver through the pubic symphysis. Sagittal and coronal reformatted images were obtained on the technologist's workstation. DLP: 292 mGy-cm FINDINGS: LUNG BASES: The visualized lung bases are unremarkable. LIVER, GALLBLADDER, AND BILIARY TREE: The liver is normal in size, shape, and attenuation. No focal hepatic lesion or biliary ductal dilatation is present. The gallbladder is unremarkable with no evidence of radiopaque gallstones, gallbladder wall thickening, or obvious pericholecystic inflammatory changes. PANCREAS: Unremarkable. SPLEEN: Unremarkable. ADRENAL GLANDS: Unremarkable. KIDNEYS AND URETERS: The kidneys are normal in size, shape, and attenuation. No hydronephrosis, hydroureter, or calculi seen. No perinephric stranding. BLADDER: Unremarkable. GASTROINTESTINAL TRACT: There is relative thickening of the wall of the stomach. This is concentric. This could additionally relate to the phase of the examination. There are numerous gas-filled loops of small and large bowel throughout the abdomen. No significant bowel dilatation to suggest obstruction. No free fluid or free air within the abdomen or pelvis. While no discrete appendix is visualized in the right lower quadrant, there are no acute inflammatory changes to suggest appendicitis. ABDOMINAL WALL: No significant hernia is appreciated. LYMPH NODES: Normal. VASCULAR: Moderate atherosclerotic calcification. PELVIC VISCERA: Prostate and seminal vesicles are unremarkable. OSSEOUS STRUCTURES: There is fusion of the L4 and L5 posterior elements secondary to a single ghazal with associated cortical screws. There is anterolisthesis present at the L4-L5 level measuring approximately 0.9 cm. There is mild intervertebral disc space narrowing at this level with associated vacuum disc phenomena. There is mild retrolisthesis at the L3-L4 level measuring 0.4 cm. Multilevel degenerative changes of the lower thoracic and lumbar spine are redemonstrated including mild intervertebral disc space narrowing and prominent anterior osteophytes. There is relative sparing of the L2-L3 level. IMPRESSION: 1. No specific findings to explain acute intra-abdominal or pelvic symptoms. The majority of the loops of colon are gas-filled. 2. Apparent mild thickening of the wall of the stomach. Correlation with symptoms is recommended. 3. Significant spondylosis of the lower thoracic and lumbar spine including grade 2 spondylolisthesis at the L4-L5 level. Grade 1 spondylolisthesis at the L3-L4 level.
[2017-03-02 20:55] LABS: ABSOLUTE BASOPHIL COUNT 0 /CUMM (0.0-0.2); ABSOLUTE EOSINOPHIL COUNT 0.2 /CUMM (0.0-0.7); ABSOLUTE GRANULOCYTE CT 7.6 /CUMM (1.4-6.5); ABSOLUTE LYMPH COUNT 0.9 /CUMM (1.2-3.4); ABSOLUTE MONOCYTE COUNT 0.9 /CUMM (0.10-0.60); BASOPHIL % 0.3 % (0.0-2.0); EOSINOPHIL % 2.1 % (0-5); GRANULOCYTE % 78.9 % (42.2-75.2); MEAN CORPUSCULAR HGB 31.4 PG (27.0-31.0); MEAN CORPUSCULAR HGB CONC 33.5 G/DL (33.0-37.0); MEAN CORPUSCULAR VOLUME 93.9 FL (80.0-94.0); MEAN PLATELET VOLUME 6.9 FL (7.4-10.4); PLATELET COUNT 310 /CUMM (130-400); RBC DISTRIBUTION WIDTH 15.6 % (11.5-14.5); RED BLOOD CELL CT 4.05 /CUMM (4.70-6.10); WHITE BLOOD CELL COUNT 9.6 /CUMM (4.8-10.8)
[2017-03-02 21:05] VITALS: BP 174/72
[2017-03-02] MEDS ORDERED: CIPRO500 M1 PO (21:50)
[2017-04-03] MEDS ORDERED: CIPRO500 M1 PO (04:01)
== END 2017-03-02 22:22 ==
LOC: ERH 18:15
PROVIDERS: Pediatrics
DX: N41.9 Inflammatory disease of prostate, unspecified (principal)
CPT/HCPCS: 74176; 81003

== ENCOUNTER 2017-03-09 19:15 | Emergency (ER) | payer OTHER, MEDICARE ==
[~2017-03-09] VITALS: Ht 188 cm; Wt 74.8 kg
--- NOTE | 2017-03-09 20:33 | ED GI/GU/ABDOMINAL COMPLAINT ---
History of Present Illness General Chief Complaint: General Adult Stated Complaint: PER PT NEEDS ENEMA Source: patient Exam Limitations: no limitations Vital Signs & Intake/Output Vital Signs & Intake/Output Vital Signs Date Time Temp Pulse Resp B/P B/P Pulse O2 O2 Flow FiO2 Mean Ox Delivery Rate 03/09 2111 98.3 83 18 134/82 98 Room Air 03/092 98.3 61 16 144/77 97 Room Air ED Intake and Output 03/10 0000 03/09 1200 Intake Total Output Total Balance Patient 165 lb Weight Weight Reported by Patient Measurement Method Allergies Coded Allergies: No Known Allergies (03/02/17) Reconcile Medications Ciprofloxacin HCl (Cipro) 500 MG TABLET 1 TAB PO BID PROSTATITIS Ciprofloxacin HCl (Cipro) 500 MG TABLET 1 TAB PO BID prostatitis Ciprofloxacin HCl (Cipro) 500 MG TABLET 1 TAB PO BID prostatitis Clopidogrel Bisulfate (Clopidogrel) 75 MG TABLET 1 TAB PO DAILY HX DVT ( Reported) Donepezil HCl (Aricept) 10 MG TABLET 1 TAB PO QPM DEMENTIA (Reported) Fluticasone Propionate 16 GM SPRAY.SUSP 1 SPRAY NASB BID ALLERGIES (Reported) Linaclotide (Linzess) 145 MCG CAPSULE 1 CAP PO DAILY GI (Reported) Loteprednol Etabonate (Lotemax) 5 GM DROPS.GEL 1 DROP OPH BID BOTH EYES ( Reported) Magnesium Citrate (Citrate Of Magnesia) 300 ML SOLUTION 296 ML PO BID CONSTIPATION DISPENSE 12 BOTTLES Naproxen 375 MG TABLET 1 TAB PO BID PRN PAIN/INFLAMMATION with food Pantoprazole Sodium 40 MG TABLET.DR 1 TAB PO DAILY AC GI (Reported) Sennosides (Senna) 8.6 MG TABLET 1-2 TAB PO BID CONSTIPATION Sertraline HCl 100 MG TABLET 1 TAB PO DAILY MENTAL HEALTH (Reported) Simvastatin (Simvastatin*) 40 MG TABLET 1 TAB PO QPM CHOLESTEROL (Reported) Tamsulosin HCl 0.4 MG CAP.ER.24H 1 CAP PO DAILY PROSTATE (Reported) Tamsulosin HCl (Flomax) 0.4 MG CAP.ER.24H 1 CAP PO DAILY urinary retention Triazolam 0.25 MG TABLET 1 TAB PO QPM SLEEP (Reported) Triage Note: REPORTS TO FEEL CONSTIPATED, LAST BM WAS APPROXIMATELY ONE WEEK AGO. DENIED ABD PAIN. Triage Nurses Notes Reviewed? yes Onset: Gradual Duration: week(s):, waxing and waning Timing: recent history Quality/Severity: cramping Location: lower abdomen Radiation: no radiation Activities at Onset: none Modifying Factors: Worsens With: urinating. Associated Symptoms: lower abdominal pain HPI: 81-year-old gentleman, history of prostatitis, history of constipation, presents with lower abdominal pain. He states that he started the Cipro and started feeling better. However, he only took the medicine for 2-3 days. He notes that he has had decreased bowel movements. However, when he takes the MiraLAX and other bowel medications he is able to affect a bowel movement a day. He has no nausea vomiting diarrhea fever chills chest pain shortness of breath. He does note that in the middle night he urinates very frequently and sometimes has the sensation of incomplete voiding. That he has lower abdominal pressure consistent with his recent episode of prostatitis. Past History Travel History Traveled to [place] past 21 day No Medical History Any Pertinent Medical History? see below for history Neurological: dementia EENT: NONE Cardiovascular: NONE Respiratory: NONE Gastrointestinal: constipation Hepatic: NONE Renal: NONE Musculoskeletal: osteoarthritis Psychiatric: NONE Endocrine: NONE Surgical History Surgical History: non-contributory Psychosocial History What is your primary language Kinyarwanda Tobacco Use: Current Daily Use Daily Tobacco Use Amount/Type: => 5 Cigarettes daily Family History Hx Contributory? No Review of Systems Review of Systems Constitutional: Reports: no symptoms. EENTM: Reports: no symptoms. Respiratory: Reports: no symptoms. Cardiovascular: Reports: no symptoms. GI: Reports: no symptoms. Genitourinary: Reports: no symptoms. Musculoskeletal: Reports: no symptoms. Skin: Reports: no symptoms. Neurological/Psychological: Reports: no symptoms. Hematologic/Endocrine: Reports: no symptoms. Immunologic/Allergic: Reports: no symptoms. All Other Systems: Reviewed and Negative Physical Exam Physical Exam General Appearance: well developed/nourished Head: atraumatic Eyes: Bilateral: normal appearance. Neck: normal inspection, supple, full range of motion Respiratory: normal breath sounds, chest non-tender, no respiratory distress, quiet respiration, lungs clear Cardiovascular: regular rate/rhythm Gastrointestinal: normal bowel sounds, soft, non-tender, no organomegaly Rectal: tender prostate. No significant stool in rectal vault. Guaiac negative Core Measures ACS in differential dx? No Severe Sepsis Present: No Septic Shock Present: No Progress Differential Diagnosis: UTI versus prostatitis versus bowel issues Plan of Care: See below Initial ED EKG: none Comments: PATIENT: JOE HORN JR PRESENT AGE: 81 PATIENT ACCOUNT NO: [id number] : 37 LOCATION: [facility] ORDERING PHYSICIAN: AMISHA DEL VALLE MD SERVICE DATE: 03/02/17 EXAM TYPE: CAT - CT ABD & PELVIS W/O IV CONTRAS EXAMINATION: CT ABDOMEN AND PELVIS WITHOUT CONTRAST CLINICAL INFORMATION: Lower abdominal pain COMPARISON: Abdominal radiograph 02/08/2017, CT abdomen and pelvis 05/02/2016 TECHNIQUE: Multidetector volumetric imaging was performed from the superior aspect of the liver through the pubic symphysis. Sagittal and coronal reformatted images were obtained on the technologist's workstation. DLP: 292 mGy-cm FINDINGS: LUNG BASES: The visualized lung bases are unremarkable. LIVER, GALLBLADDER, AND BILIARY TREE: The liver is normal in size, shape, and attenuation. No focal hepatic lesion or biliary ductal dilatation is present. The gallbladder is unremarkable with no evidence of radiopaque gallstones, gallbladder wall thickening, or obvious pericholecystic inflammatory changes. PANCREAS: Unremarkable. SPLEEN: Unremarkable. ADRENAL GLANDS: Unremarkable. KIDNEYS AND URETERS: The kidneys are normal in size, shape, and attenuation. No hydronephrosis, hydroureter, or calculi seen. No perinephric stranding. BLADDER: Unremarkable. GASTROINTESTINAL TRACT: There is relative thickening of the wall of the stomach. This is concentric. This could additionally relate to the phase of the examination. There are numerous gas-filled loops of small and large bowel throughout the abdomen. No significant bowel dilatation to suggest obstruction. No free fluid or free air within the abdomen or pelvis. While no discrete appendix is visualized in the right lower quadrant, there are no acute inflammatory changes to suggest appendicitis. ABDOMINAL WALL: No significant hernia is appreciated. LYMPH NODES: Normal. VASCULAR: Moderate atherosclerotic calcification. PELVIC VISCERA: Prostate and seminal vesicles are unremarkable. OSSEOUS STRUCTURES: There is fusion of the L4 and L5 posterior elements secondary to a single ghazal with associated cortical screws. There is anterolisthesis present at the L4-L5 level measuring approximately 0.9 cm. There is mild intervertebral disc space narrowing at this level with associated vacuum disc phenomena. There is mild retrolisthesis at the L3-L4 level measuring 0.4 cm. Multilevel degenerative changes of the lower thoracic and lumbar spine are redemonstrated including mild intervertebral disc space narrowing and prominent anterior osteophytes. There is relative sparing of the L2-L3 level. IMPRESSION: 1. No specific findings to explain acute intra-abdominal or pelvic symptoms. The majority of the loops of colon are gas-filled. 2. Apparent mild thickening of the wall of the stomach. Correlation with symptoms is recommended. 3. Significant spondylosis of the lower thoracic and lumbar spine including grade 2 spondylolisthesis at the L4-L5 level. Grade 1 spondylolisthesis at the L3-L4 level. DICTATED BY: LUCY DIAZ MD DATE/TIME DICTATED:03/02/172010 COMPENSATION SPECIALIST:CIRA DATE/TIME TRANSCRIBED:03/02/172010 CONFIDENTIAL, DO NOT COPY WITHOUT APPROPRIATE AUTHORIZATION. <Electronically signed in Other Vendor System> SIGNED BY: LUCY DIAZ MD 03/02/172023 Departure Departure Disposition: HOME OR SELF CARE Condition: Stable Clinical Impression Primary Impression: Prostatitis Secondary Impressions: Bowel dysfunction Referrals: PATIENT HAS NO PRIMARY CARE DR (PCP/Family) Departure Forms: Customer Survey General Discharge Information Prescriptions: Current Visit Scripts Ciprofloxacin HCl (Cipro) 1 TAB PO BID #20 TAB Tamsulosin HCl (Flomax) 1 CAP PO DAILY #30 CAP Comments Patient states that he only took 3 days of the antibiotic. His CAT scan from a few weeks ago and all of his blood work has been benign. Discussed at great length. Patient feels comfortable going home with prescription of ciprofloxacin to take for 10 days. I referred him to urology and to gastroenterology.
[2017-03-09] MEDS ORDERED: FLOMAX0.4 M1 PO (20:59)
[2017-03-09] MEDS ORDERED: CIPRO500 M1 PO (20:59)
[2017-03-09 21:11] VITALS: BP 134/82
[2017-04-03] MEDS ORDERED: CIPRO500 M1 PO (04:01)
== END 2017-03-09 21:12 ==
LOC: ERH 19:15
DX: N41.9 Inflammatory disease of prostate, unspecified (principal); K59.9 Functional intestinal disorder, unspecified

== ENCOUNTER 2017-03-13 15:09 | Emergency (ER) | payer OTHER, MEDICARE ==
[~2017-03-13 15:09] MED LIST changes: +FLOMAX0.4 M1 PO
[2017-03-13 15:15] VITALS: BP 155/88
--- NOTE | 2017-03-13 16:01 | ED GENERAL ADULT ---
History of Present Illness General Chief Complaint: General Adult Stated Complaint: FOLLOW UP EVALUATION Source: patient, old records Exam Limitations: dementia Vital Signs & Intake/Output Vital Signs & Intake/Output Vital Signs Date Time Temp Pulse Resp B/P B/P Pulse O2 O2 Flow FiO2 Mean Ox Delivery Rate 03/13 1515 98.5 90 22 155/88 97 ED Intake and Output 03/14 0000 03/13 1200 Intake Total Output Total Balance Patient 165 lb Weight Allergies Coded Allergies: No Known Allergies (03/02/17) Reconcile Medications Ciprofloxacin HCl (Cipro) 500 MG TABLET 1 TAB PO BID PROSTATITIS Ciprofloxacin HCl (Cipro) 500 MG TABLET 1 TAB PO BID prostatitis Ciprofloxacin HCl (Cipro) 500 MG TABLET 1 TAB PO BID prostatitis Clopidogrel Bisulfate (Clopidogrel) 75 MG TABLET 1 TAB PO DAILY HX DVT ( Reported) Donepezil HCl (Aricept) 10 MG TABLET 1 TAB PO QPM DEMENTIA (Reported) Fluticasone Propionate 16 GM SPRAY.SUSP 1 SPRAY NASB BID ALLERGIES (Reported) Linaclotide (Linzess) 145 MCG CAPSULE 1 CAP PO DAILY GI (Reported) Loteprednol Etabonate (Lotemax) 5 GM DROPS.GEL 1 DROP OPH BID BOTH EYES ( Reported) Magnesium Citrate (Citrate Of Magnesia) 300 ML SOLUTION 296 ML PO BID CONSTIPATION DISPENSE 12 BOTTLES Naproxen 375 MG TABLET 1 TAB PO BID PRN PAIN/INFLAMMATION with food Pantoprazole Sodium 40 MG TABLET.DR 1 TAB PO DAILY AC GI (Reported) Sennosides (Senna) 8.6 MG TABLET 1-2 TAB PO BID CONSTIPATION Sertraline HCl 100 MG TABLET 1 TAB PO DAILY MENTAL HEALTH (Reported) Simvastatin (Simvastatin*) 40 MG TABLET 1 TAB PO QPM CHOLESTEROL (Reported) Tamsulosin HCl 0.4 MG CAP.ER.24H 1 CAP PO DAILY PROSTATE (Reported) Tamsulosin HCl (Flomax) 0.4 MG CAP.ER.24H 1 CAP PO DAILY urinary retention Triazolam 0.25 MG TABLET 1 TAB PO QPM SLEEP (Reported) Triage Note: PER PT HERE FOR F/U WITH DR. BAUMANN" I KNOW HE IS NOT HERE BUT I WILL SEE AN BUTTON BREAKER SO HE KNOWS I FOLLOWED UP. STILLSTRUGGLING WITH BOWELS. Triage Nurses Notes Reviewed? yes HPI: Patient presents for reevaluation. Over the patient has no specific complaint today, he states that he was following up so he could "stay in the loop". Apparently he has an appointment with his primary care physician either tomorrow or the day after. He was evaluated here in the emergency department on a number of occasions and was instructed to follow up with his GI specialist and urologist according to the last visit he had. He states he has not been able to do this. Past History Travel History Traveled to [place] past 21 day No Medical History Any Pertinent Medical History? see below for history Neurological: dementia EENT: NONE Cardiovascular: NONE Respiratory: NONE Gastrointestinal: constipation Hepatic: NONE Renal: NONE Musculoskeletal: osteoarthritis Psychiatric: NONE Endocrine: NONE Surgical History Surgical History: non-contributory Psychosocial History What is your primary language Belgian Tobacco Use: Current Daily Use Daily Tobacco Use Amount/Type: =< 4 Cigarettes daily Family History Hx Contributory? No Review of Systems Review of Systems Constitutional: Reports: no symptoms. EENTM: Reports: no symptoms. Respiratory: Reports: no symptoms. Cardiovascular: Reports: no symptoms. GI: Reports: no symptoms. Genitourinary: Reports: no symptoms. Musculoskeletal: Reports: no symptoms. Skin: Reports: no symptoms. Neurological/Psychological: Reports: no symptoms. Hematologic/Endocrine: Reports: no symptoms. Immunologic/Allergic: Reports: no symptoms. All Other Systems: Reviewed and Negative Physical Exam Physical Exam General Appearance: see below Comments: Gen.: Well-nourished, well-developed, no acute respiratory distress. Head: Normocephalic, atraumatic. Eyes: Normal inspection bilaterally Ears: Normal inspection bilaterally Nose: Normal inspection Throat/mouth : Moist mucosa Neck: Supple, full range of motion, no goiter Heart: Regular rate and rhythm, no murmurs rubs or gallops Lungs: Clear to auscultation bilaterally with normal air entry Chest: Nontender Back: Normal range of motion Abdomen: Soft, nontender, nondistended, normal bowel sounds Extremities: Normal range of motion grossly, equal radial pulses, no cyanosis clubbing or edema Neurologic: Cranial nerves grossly intact, speech is clear Skin: warm and dry Psychiatric: Calm, cooperative, no apparent delusions or hallucinations Core Measures ACS in differential dx? No CVA/TIA Diagnosis: No Severe Sepsis Present: No Septic Shock Present: No Progress Differential Diagnoses I considered the following diagnoses in my evaluation of the patient: Dementia, CVA, gastroenteritis Plan of Care: Orders Procedure Date/time Status Patient Safety Monitor 03/13 1604 Complete Initial ED EKG: none Comments: 03/13/2017 4:04:36 PM although Farzad came here in order to "stay in the loop", he is also somewhat reluctant to have an evaluation because he needs to leave the emergency department. I have attempted to contact his daughter regarding his typical level of functioning. I have left a message on her answering machine. 03/13/2017 4:14:52 PM Farzad does show interactions consistent with dementia, however, he holds a meaningful conversation and is aware of current events and the year. He has declined additional evaluation here in the emergency department. He will be following up with his primary care physician this week. Departure Departure Disposition: HOME OR SELF CARE Condition: Stable Clinical Impression Primary Impression: Visit for [facility] check Secondary Impressions: Dementia Qualifiers: Dementia type: unspecified type Dementia behavioral disturbance: without behavioral disturbance Qualified Code: F03.90 - Unspecified dementia without behavioral disturbance Referrals: PATIENT HAS NO PRIMARY CARE DR (PCP/Family) Additional Instructions: Follow-up with your doctor as scheduled this week. Return if any concerns or sudden worsening. Departure Forms: Customer Survey General Discharge Information Critical Care Note Critical Care Note Critical Care Time: non-applicable
[2017-04-03] MEDS ORDERED: CIPRO500 M1 PO (04:01)
== END 2017-03-13 16:23 ==
LOC: ERH 15:09
DX: F03.90 Unspecified dementia, unspecified severity, without behavioral disturbance, psychotic disturbance, mood disturbance, and anxiety (principal)

== ENCOUNTER 2017-03-16 21:46 | Emergency (ER) | payer OTHER, MEDICARE ==
[~2017-03-16] VITALS: Ht 189.2 cm; Wt 74.8 kg
[2017-03-16 21:50] VITALS: BP 139/82
--- NOTE | 2017-03-16 22:24 | ED GI/GU/ABDOMINAL COMPLAINT ---
History of Present Illness General Chief Complaint: General Adult Stated Complaint: CONSTIPATION Source: patient Exam Limitations: no limitations Vital Signs & Intake/Output Vital Signs & Intake/Output Vital Signs Date Time Temp Pulse Resp B/P B/P Pulse O2 O2 Flow FiO2 Mean Ox Delivery Rate 03/16 2150 98.6 65 20 139/82 97 Room Air ED Intake and Output 03/17 0000 03/16 1200 Intake Total 0 Output Total Balance 0 Intake, Oral 0 Patient 165 lb Weight Weight Reported by Patient Measurement Method Allergies Coded Allergies: No Known Allergies (03/16/17) Reconcile Medications Ciprofloxacin HCl (Cipro) 500 MG TABLET 1 TAB PO BID PROSTATITIS Ciprofloxacin HCl (Cipro) 500 MG TABLET 1 TAB PO BID prostatitis Ciprofloxacin HCl (Cipro) 500 MG TABLET 1 TAB PO BID prostatitis Clopidogrel Bisulfate (Clopidogrel) 75 MG TABLET 1 TAB PO DAILY HX DVT ( Reported) Donepezil HCl (Aricept) 10 MG TABLET 1 TAB PO QPM DEMENTIA (Reported) Fluticasone Propionate 16 GM SPRAY.SUSP 1 SPRAY NASB BID ALLERGIES (Reported) Linaclotide (Linzess) 145 MCG CAPSULE 1 CAP PO DAILY GI (Reported) Loteprednol Etabonate (Lotemax) 5 GM DROPS.GEL 1 DROP OPH BID BOTH EYES ( Reported) Magnesium Citrate (Citrate Of Magnesia) 300 ML SOLUTION 296 ML PO BID CONSTIPATION DISPENSE 12 BOTTLES Naproxen 375 MG TABLET 1 TAB PO BID PRN PAIN/INFLAMMATION with food Pantoprazole Sodium 40 MG TABLET.DR 1 TAB PO DAILY AC GI (Reported) Sennosides (Senna) 8.6 MG TABLET 1-2 TAB PO BID CONSTIPATION Sertraline HCl 100 MG TABLET 1 TAB PO DAILY MENTAL HEALTH (Reported) Simvastatin (Simvastatin*) 40 MG TABLET 1 TAB PO QPM CHOLESTEROL (Reported) Tamsulosin HCl 0.4 MG CAP.ER.24H 1 CAP PO DAILY PROSTATE (Reported) Tamsulosin HCl (Flomax) 0.4 MG CAP.ER.24H 1 CAP PO DAILY urinary retention Tamsulosin HCl (Flomax) 0.4 MG CAP.ER.24H 1 CAP PO DAILY urine issues Triazolam 0.25 MG TABLET 1 TAB PO QPM SLEEP (Reported) Triage Note: TRIAGE: PT TO ER C/C "I WAS KEEPING UP THE REGIMEN THAT HE SUGGESTED BUT I NEED TO GET PRESCRIPTIONS TO CARRY OUT HIS RECOMMENDATION. SOMETHING WHERE I CAN CLEAR MY BOWELS. I WANTED HIM TO KNOW THAT I WAS STILL TAKING THE MEDICINE BUT I'M OUT OF IT." PT REQUESTING TO SPEAK WITH DR DEL VALLE. Triage Nurses Notes Reviewed? yes Onset: Gradual Duration: week(s):, waxing and waning Timing: recent history Quality/Severity: cramping Location: lower abdomen Radiation: no radiation Activities at Onset: none Prior Abdominal Problems: similar symptoms Modifying Factors: Worsens With: urinating. Associated Symptoms: increased urination at night, with poor urinary stream for many months. HPI: 81-year-old gentleman presents for follow-up. He states that, "I'm here just to make sure that things are okay. I'm having better bowel movements now. I don't have any pain in my abdomen." Upon further questioning, he Past History Travel History Traveled to [place] past 21 day No Medical History Any Pertinent Medical History? 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 No Review of Systems Review of Systems Constitutional: Reports: no symptoms. EENTM: Reports: no symptoms. Respiratory: Reports: no symptoms. Cardiovascular: Reports: no symptoms. GI: Reports: no symptoms. Genitourinary: Reports: no symptoms. Musculoskeletal: Reports: no symptoms. Skin: Reports: no symptoms. Neurological/Psychological: Reports: no symptoms. Hematologic/Endocrine: Reports: no symptoms. Immunologic/Allergic: Reports: no symptoms. All Other Systems: Reviewed and Negative Physical Exam Physical Exam General Appearance: well developed/nourished, no apparent distress Head: atraumatic, normal appearance Eyes: Bilateral: normal appearance. Ears, Nose, Throat, Mouth: hearing grossly normal Neck: normal inspection, supple, full range of motion Respiratory: normal breath sounds, chest non-tender, no respiratory distress, quiet respiration, lungs clear Cardiovascular: regular rate/rhythm Gastrointestinal: normal bowel sounds, soft, non-tender, no organomegaly Rectal: deferred Back: normal inspection, normal range of motion Extremities: normal range of motion Neurologic/Psych: no motor/sensory deficits, awake, alert, oriented x 3 Skin: intact, normal color, warm/dry Core Measures ACS in differential dx? No Severe Sepsis Present: No Septic Shock Present: No Progress Differential Diagnosis: irregular bowel movements vs bph vs urinary incontinence vs other. Plan of Care: see below. Initial ED EKG: none Departure Departure Disposition: HOME OR SELF CARE Condition: Stable Clinical Impression Primary Impression: Bowel dysfunction Secondary Impressions: Frequent urination at night Referrals: PATIENT HAS NO PRIMARY CARE DR (PCP/Family) Departure Forms: Customer Survey General Discharge Information Prescriptions: Current Visit Scripts Tamsulosin HCl (Flomax) 1 CAP PO DAILY #30 CAP Comments Discussed at length with the patient. He has been seen in the emergency department 10 times since January. He has had multiple rectal exams which have been negative for constipation. A CAT scan and blood work have all been benign. He been prescribed to 3 prior courses of Cipro for prostatitis. He has not yet followed up with his urologist or a counseling aide. I discussed this with him. He will follow-up with a urologist and counseling aide, calling to make appointments tomorrow.
[2017-03-16] MEDS ORDERED: FLOMAX0.4 M1 PO (22:29)
[2017-04-03] MEDS ORDERED: CIPRO500 M1 PO (04:01)
== END 2017-03-16 22:56 ==
LOC: ERH 21:46
DX: K59.9 Functional intestinal disorder, unspecified (principal); R35.0 Frequency of micturition

== ENCOUNTER 2017-03-18 22:11 | Emergency (ER) | payer OTHER, MEDICARE ==
--- NOTE | 2017-03-18 22:48 | ED GI/GU/ABDOMINAL COMPLAINT ---
History of Present Illness General Chief Complaint: General Adult Stated Complaint: CONSTIPATION Source: patient, old records Exam Limitations: no limitations Vital Signs & Intake/Output Vital Signs & Intake/Output Vital Signs Date Time Temp Pulse Resp B/P B/P Pulse O2 O2 Flow FiO2 Mean Ox Delivery Rate 03/19 0005 96.2 59 20 147/68 95 Room Air 03/18 2218 97.9 80 16 148/74 98 Room Air Room Air ED Intake and Output 03/19 0000 03/18 1200 Intake Total 0 Output Total Balance 0 Intake, Oral 0 Allergies Coded Allergies: No Known Allergies (03/18/17) Reconcile Medications Ciprofloxacin HCl (Cipro) 500 MG TABLET 1 TAB PO BID PROSTATITIS Ciprofloxacin HCl (Cipro) 500 MG TABLET 1 TAB PO BID prostatitis Ciprofloxacin HCl (Cipro) 500 MG TABLET 1 TAB PO BID prostatitis Clopidogrel Bisulfate (Clopidogrel) 75 MG TABLET 1 TAB PO DAILY HX DVT ( Reported) Donepezil HCl (Aricept) 10 MG TABLET 1 TAB PO QPM DEMENTIA (Reported) Fluticasone Propionate 16 GM SPRAY.SUSP 1 SPRAY NASB BID ALLERGIES (Reported) Linaclotide (Linzess) 145 MCG CAPSULE 1 CAP PO DAILY GI (Reported) Loteprednol Etabonate (Lotemax) 5 GM DROPS.GEL 1 DROP OPH BID BOTH EYES ( Reported) Magnesium Citrate (Citrate Of Magnesia) 300 ML SOLUTION 296 ML PO BID CONSTIPATION DISPENSE 12 BOTTLES Naproxen 375 MG TABLET 1 TAB PO BID PRN PAIN/INFLAMMATION with food Pantoprazole Sodium 40 MG TABLET.DR 1 TAB PO DAILY AC GI (Reported) Peg 3350/Na Sulf,Bicarb,Cl/KCl (Golytely Solution) 236-22.74G SOLN.RECON 8 OZ PO [id number] PRN CONSTIPATION Sennosides (Senna) 8.6 MG TABLET 1-2 TAB PO BID CONSTIPATION Sertraline HCl 100 MG TABLET 1 TAB PO DAILY MENTAL HEALTH (Reported) Simvastatin (Simvastatin*) 40 MG TABLET 1 TAB PO QPM CHOLESTEROL (Reported) Tamsulosin HCl 0.4 MG CAP.ER.24H 1 CAP PO DAILY PROSTATE (Reported) Tamsulosin HCl (Flomax) 0.4 MG CAP.ER.24H 1 CAP PO DAILY urinary retention Tamsulosin HCl (Flomax) 0.4 MG CAP.ER.24H 1 CAP PO DAILY urine issues Triazolam 0.25 MG TABLET 1 TAB PO QPM SLEEP (Reported) Triage Note: PT TO TRIAGE WITH CONSTIPATION FOR 5 WEEKS. PT STATES HE FEELS LIKE KE CAN'T HAVE A FULL BM. PT DENIES PAIN. Triage Nurses Notes Reviewed? yes Onset: Gradual Duration: week(s):, intermittent Timing: recent history Quality/Severity: aching, cramping Severity Numbers: 1 Location: generalized abdomen Radiation: no radiation Prior Abdominal Problems: similar symptoms No Modifying Factors: none Associated Symptoms: DENIES HPI: 81-year-old male presents to ER for evaluation complaining of intermittent constipation he is been seen numerous times the past for similar symptoms. He states he had a small bowel movement yesterday no black or bloody stools no weight loss no abdominal pain. 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 He has been using Linzess without improvement in his constipation. He denies recent weight loss, change in his appetite no rectal pain fever chills nausea vomiting. Patient denies any soft stools chest pain back pain urinary complaints (JOE GILL) Past History Travel History Traveled to [place] past 21 day No Medical History Any Pertinent Medical History? 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 No (JOE GILL) Review of Systems Review of Systems Constitutional: Reports: see HPI. All Other Systems: Reviewed and Negative Comments Review of systems: See HPI, All other systems negative. Constitutional, no chills no fever, no malaise HEENT: No visual changes no sore throat no congestion, Cardiovascular: No chest pain , no palpitation Skin: no rashes, no change in skin Respiratory: No dyspnea no cough no sputum no hemoptysis GI: No nausea no vomiting, no diarrhea, constipation : No dysuria No hematuria, Muscle skeletal: No joint pain, no joint swelling, no back pain, no neck pain, Neurologic: No numbness no headache Psych: No stress Heme/endocrine: No bruising Immunology: No lymphadenopathy (JOE GILL) Physical Exam Physical Exam General Appearance: no apparent distress, alert, awake Gastrointestinal: normal bowel sounds, soft Comments: Well-developed well-nourished person in no acute distress HEENT: Normal EENT exam; PERRL, EOMI, HEAD is atraumatic. moist mucous membranes. Neck: Supple, normal range of motion Back: Nontender, no CVA tenderness. Full range of motion Cardiovascular: Regular rate and rhythms no murmurs rubs Respiratory: Chest nontender.There were no bony deformities, no asymmetry. No respiratory distress. Patient speaking in full complete sentences. Breath sounds clear to auscultation bilaterally: NO W/R/R Abdomen: Soft, nontender nondistended no appreciable organomegaly normal bowel sounds Extremity: No edema, full range of motion of extremities Neuro: Alert oriented x3, motor sensory normal. There were no obvious focal neurologic abnormalities. Skin: No appreciable rash on exposed skin, skin is warm and dry. Psych: Mood and affect is normal, memory and judgment is normal. Core Measures ACS in differential dx? No Severe Sepsis Present: No Septic Shock Present: No (JOE GILL) Progress Differential Diagnosis: bowel obstruction, colon cancer, diverticulitis, colitis , impaction Plan of Care: Orders Procedure Date/time Status Enema 03/18 2310 Active Discussed at length with the patient. He has been seen in the emergency department several times since January. He has had multiple rectal exams which have been negative for constipation. A CAT scan and blood work have all been benign. Patient reports symptoms improved after Fleet enema I discussed with the patient at length all of their results. I had an extensive conversation regarding need for close follow up with their primary care physician this week as well as return precautions. I answered all of their questions, they feel comfortable with the plan and follow-up care. I discussed with the patient/family the medications that they will receive. I gave them signs and symptoms that could indicate an adverse reaction. I have advised them to limit their activities until they can see how they respond to the medication. (JOE GILL) Initial ED EKG: none (JOE GILL) Departure Departure Disposition: HOME OR SELF CARE Condition: Stable Clinical Impression Primary Impression: Constipation Referrals: PATIENT HAS NO PRIMARY CARE DR (PCP/Family) Additional Instructions: follow up with your pack puller this week. xiomara as directed. increase the fiber in your diet, drink plenty of fluids. return with any concerns this was sent to [facility] Departure Forms: Customer Survey General Discharge Information Prescriptions: Current Visit Scripts Peg 3350/Na Sulf,Bicarb,Cl/KCl (Golytely Solution) 8 OZ PO [id number] PRN CONSTIPATION #4 L (ANGELICA NEELY,JOE) PA/INFORMATION [employer] Co-Sign Statement Statement: ED Attending supervision documentation- [X] I saw and evaluated the patient. I have also reviewed all the pertinent lab results and diagnostic results. I agree with the findings and the plan of care as documented in the PA's/[employer]'s documentation. [X] I have reviewed the ED Record and agree with the PA's/[employer]'s documentation. [] Additions or exceptions (if any) to the PAs/[employer]'s note and plan are summarized below: [] (BRIAN WHITE,DAMARIS Kelley)
[2017-03-18] MEDS ORDERED: GOLYTELY SOLU4000 ML PO (23:37)
[2017-03-19 00:05] VITALS: BP 147/68
[2017-03-19] MEDS ORDERED: COLACE100 M1 PO (22:00)
[2017-03-19] MEDS ORDERED: SENNA8.6 M3 PO (22:00)
[2017-03-19] MEDS ORDERED: MIRALAX119 GM PO (22:02)
[2017-04-03] MEDS ORDERED: CIPRO500 M1 PO (04:01)
== END 2017-03-19 00:19 ==
LOC: ERH 22:11
DX: K59.00 Constipation, unspecified (principal)

== ENCOUNTER 2017-03-19 21:00 | Emergency (ER) | payer OTHER, MEDICARE ==
[~2017-03-19] VITALS: Ht 188 cm; Wt 77.1 kg
--- NOTE | 2017-03-19 21:19 | ED GENERAL ADULT ---
History of Present Illness General Chief Complaint: General Adult Stated Complaint: ?CONSTIPATION Source: patient, family Exam Limitations: no limitations Vital Signs & Intake/Output Vital Signs & Intake/Output Vital Signs Date Time Temp Pulse Resp B/P B/P Pulse O2 O2 Flow FiO2 Mean Ox Delivery Rate 03/19 2147 97.6 61 18 150/85 96 Room Air ED Intake and Output 03/20 0000 03/19 1200 Intake Total Output Total Balance Patient 170 lb Weight Weight Reported by Patient Measurement Method Allergies Coded Allergies: No Known Allergies (03/18/17) Reconcile Medications Ciprofloxacin HCl (Cipro) 500 MG TABLET 1 TAB PO BID PROSTATITIS Ciprofloxacin HCl (Cipro) 500 MG TABLET 1 TAB PO BID prostatitis Ciprofloxacin HCl (Cipro) 500 MG TABLET 1 TAB PO BID prostatitis Clopidogrel Bisulfate (Clopidogrel) 75 MG TABLET 1 TAB PO DAILY HX DVT ( Reported) Docusate Sodium (Colace) 100 MG CAPSULE 1 CAP PO BID CONSTIPATION Donepezil HCl (Aricept) 10 MG TABLET 1 TAB PO QPM DEMENTIA (Reported) Fluticasone Propionate 16 GM SPRAY.SUSP 1 SPRAY NASB BID ALLERGIES (Reported) Linaclotide (Linzess) 145 MCG CAPSULE 1 CAP PO DAILY GI (Reported) Loteprednol Etabonate (Lotemax) 5 GM DROPS.GEL 1 DROP OPH BID BOTH EYES ( Reported) Magnesium Citrate (Citrate Of Magnesia) 300 ML SOLUTION 296 ML PO BID CONSTIPATION DISPENSE 12 BOTTLES Naproxen 375 MG TABLET 1 TAB PO BID PRN PAIN/INFLAMMATION with food Pantoprazole Sodium 40 MG TABLET.DR 1 TAB PO DAILY AC GI (Reported) Peg 3350/Na Sulf,Bicarb,Cl/KCl (Golytely Solution) 236-22.74G SOLN.RECON 8 OZ PO [id number] PRN CONSTIPATION Polyethylene Glycol 3350 (Miralax) 17 GRAM/DOSE POWDER 17 GM PO BID CONSTIAPTION mix with water, juice, soda, coffee or tea Sennosides (Senna) 8.6 MG TABLET 1-2 TAB PO BID CONSTIPATION Sennosides (Senna) 8.6 MG TABLET 2 TAB PO BID CONSTIPATION Sertraline HCl 100 MG TABLET 1 TAB PO DAILY MENTAL HEALTH (Reported) Simvastatin (Simvastatin*) 40 MG TABLET 1 TAB PO QPM CHOLESTEROL (Reported) Tamsulosin HCl 0.4 MG CAP.ER.24H 1 CAP PO DAILY PROSTATE (Reported) Tamsulosin HCl (Flomax) 0.4 MG CAP.ER.24H 1 CAP PO DAILY urinary retention Tamsulosin HCl (Flomax) 0.4 MG CAP.ER.24H 1 CAP PO DAILY urine issues Triazolam 0.25 MG TABLET 1 TAB PO QPM SLEEP (Reported) Triage Nurses Notes Reviewed? yes Onset: Gradual Duration: gone now Timing: recent history Injury Environment: home Severity: mild Modifying Factors: Improves With: medication. Associated Symptoms: "I am feeling fine." HPI: 81 yo gentleman presents for follow up. He states, "You told me to come in for a check up to see how I was doing... I am doing fine... No pain at all.... No problems at all." He states that he is having regular bowel movements, but hasn't yet followed up with the steam press tender. He states that he has questions about the bowel regimen he is supposed to be taking. He denies abdominal pain, dysuria, nausea, vomiting, chills, fever, weight loss. He states that he is feeling well. Past History Travel History Traveled to [place] past 21 day No Medical History Any Pertinent Medical History? 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 No Review of Systems Review of Systems Constitutional: Reports: no symptoms. EENTM: Reports: no symptoms. Respiratory: Reports: no symptoms. Cardiovascular: Reports: no symptoms. GI: Reports: no symptoms. Genitourinary: Reports: no symptoms. Musculoskeletal: Reports: no symptoms. Skin: Reports: no symptoms. Neurological/Psychological: Reports: no symptoms. Hematologic/Endocrine: Reports: no symptoms. Immunologic/Allergic: Reports: no symptoms. All Other Systems: Reviewed and Negative Physical Exam Physical Exam General Appearance: well developed/nourished, no apparent distress Head: atraumatic, normal appearance Eyes: Bilateral: normal appearance. Ears, Nose, Throat: normal pharynx, normal ENT inspection Neck: normal inspection, supple, full range of motion Respiratory: normal breath sounds, chest non-tender, no respiratory distress, quiet respiration, lungs clear Cardiovascular: regular rate/rhythm Gastrointestinal: normal bowel sounds, soft, non-tender, no organomegaly Back: normal inspection, normal range of motion Extremities: normal inspection, normal capillary refill, normal range of motion Neurologic/Psych: no motor/sensory deficits, awake, alert, oriented x 3 Skin: intact, normal color, warm/dry Core Measures ACS in differential dx? No CVA/TIA Diagnosis: No Severe Sepsis Present: No Septic Shock Present: No Progress Differential Diagnoses I considered the following diagnoses in my evaluation of the patient: constipation vs other. Plan of Care: discussed at length with patient.... I have done several rectal examinations... none have revealed constipation or impaction. Labs and CT scan is benign. I am concerned about dementia playing a role in his presentation. Discussed with case management. He declines case management services. Case management will send team to his home for assessment. Initial ED EKG: none Departure Departure Disposition: HOME OR SELF CARE Condition: Stable Clinical Impression Primary Impression: Bowel dysfunction Referrals: PATIENT HAS NO PRIMARY CARE DR (PCP/Family) Departure Forms: Customer Survey General Discharge Information Prescriptions: Current Visit Scripts Docusate Sodium (Colace) 1 CAP PO BID #60 CAP Ref 1 Sennosides (Senna) 2 TAB PO BID #100 TAB Ref 1 Polyethylene Glycol 3350 (Miralax) 17 GM PO BID #255 GM Ref 1 mix with water, juice, soda, coffee or tea Comments encouraged follow up with steam press tender. Critical Care Note Critical Care Note Critical Care Time: non-applicable
[2017-03-19 21:47] VITALS: BP 150/85
[2017-03-19] MEDS ORDERED: SENNA8.6 M3 PO (22:00)
[2017-03-19] MEDS ORDERED: COLACE100 M1 PO (22:00)
[2017-03-19] MEDS ORDERED: MIRALAX119 GM PO (22:02)
[2017-04-03] MEDS ORDERED: CIPRO500 M1 PO (04:01)
== END 2017-03-19 22:08 ==
LOC: ERH 21:00
DX: K59.9 Functional intestinal disorder, unspecified (principal)

== ENCOUNTER 2017-03-20 19:30 | Emergency (ER) | payer OTHER, MEDICARE ==
[~2017-03-20] VITALS: Ht 188 cm; Wt 74.8 kg
[~2017-03-20 19:30] MED LIST changes: +COLACE100 M1 PO
[2017-03-20 20:11] VITALS: BP 137/77
--- NOTE | 2017-03-20 21:08 | ED GI/GU/ABDOMINAL COMPLAINT ---
History of Present Illness General Chief Complaint: General Adult Stated Complaint: PT IS IMPACTED Source: patient, old records Exam Limitations: no limitations Vital Signs & Intake/Output Vital Signs & Intake/Output Vital Signs Date Time Temp Pulse Resp B/P B/P Pulse O2 O2 Flow FiO2 Mean Ox Delivery Rate 03/20 2011 98.0 55 20 137/77 97 Room Air ED Intake and Output 03/21 0000 03/20 1200 Intake Total Output Total Balance Patient 165 lb Weight Weight Reported by Patient Measurement Method Allergies Coded Allergies: No Known Allergies (03/20/17) Reconcile Medications Clopidogrel Bisulfate (Clopidogrel) 75 MG TABLET 1 TAB PO DAILY HX DVT ( Reported) Docusate Sodium (Colace) 100 MG CAPSULE 1 CAP PO BID CONSTIPATION Donepezil HCl (Aricept) 10 MG TABLET 1 TAB PO QPM DEMENTIA (Reported) Fluticasone Propionate 16 GM SPRAY.SUSP 1 SPRAY NASB BID ALLERGIES (Reported) Linaclotide (Linzess) 145 MCG CAPSULE 1 CAP PO DAILY GI (Reported) Loteprednol Etabonate (Lotemax) 5 GM DROPS.GEL 1 DROP OPH BID BOTH EYES ( Reported) Pantoprazole Sodium 40 MG TABLET.DR 1 TAB PO DAILY AC GI (Reported) Peg 3350/Na Sulf,Bicarb,Cl/KCl (Golytely Solution) 236-22.74G SOLN.RECON 8 OZ PO [id number] PRN CONSTIPATION Polyethylene Glycol 3350 (Miralax) 17 GRAM/DOSE POWDER 17 GM PO BID CONSTIAPTION mix with water, juice, soda, coffee or tea Sennosides (Senna) 8.6 MG TABLET 1-2 TAB PO BID CONSTIPATION Sertraline HCl 100 MG TABLET 1 TAB PO DAILY MENTAL HEALTH (Reported) Simvastatin (Simvastatin*) 40 MG TABLET 1 TAB PO QPM CHOLESTEROL (Reported) Tamsulosin HCl (Flomax) 0.4 MG CAP.ER.24H 1 CAP PO DAILY urine issues Triazolam 0.25 MG TABLET 1 TAB PO QPM SLEEP (Reported) Triage Note: TRIAGE: PT TO ER C/C "I'M IMPACTED RIGHT NOW AND I WANT TO GET AN ENEMA". REPORTS LBM A FEW DAYS AGO BUT "ONLY A LITTLE BIT". PT HAS BEEN HERE MULTIPLE TIMES FOR SAME IN THE RECENT PAST. Triage Nurses Notes Reviewed? yes Onset: Abrupt Duration: day(s): (1), constant, waxing and waning Timing: recent history Quality/Severity: bloated Severity Numbers: 4 Location: generalized abdomen Radiation: no radiation Activities at Onset: none Prior Abdominal Problems: similar symptoms No Modifying Factors: none Associated Symptoms: denies HPI: 81 year old male with history of dementia presents to the ER c/o being impacted, constatipin x 3-4 days. he has been seen 9 times in the past month for similar symptoms. he has not followed up with his GI in [place] as was recommended by myself 2 days ago when i saw him and he had a bm here. no nv, diarrhea, no abd pain, fever, chills. hestates he hasbeen compliant with his medications. lives at home alone. no black or bloody stools. no modifying factors or associated sx otherwise (JOE GILL) Past History Travel History Traveled to [place] past 21 day No Medical History Any Pertinent Medical History? 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 No (JOE GILL) Review of Systems Review of Systems Constitutional: Reports: see HPI. Comments Review of systems: See HPI, All other systems negative. Constitutional, no chills no fever, no malaise HEENT: no sore throat no congestion, no ear pain Cardiovascular: No chest pain , no palpitation , no orthopnea Skin: no rashes, no change in skin Respiratory: No dyspnea no cough GI: No nausea no vomiting, no diarrhea, constipation : No dysuria Muscle skeletal: No joint pain, no joint swelling, no back pain, no neck pain, Neurologic: No numbness no headache Psych: No stress Heme/endocrine: No bruising Immunology: No lymphadenopathy (JOE GILL) Physical Exam Physical Exam General Appearance: well developed/nourished Gastrointestinal: normal bowel sounds, soft, non-tender Comments: Well-developed well-nourished person in no acute distress HEENT: Normal EENT exam; PERRL, EOMI, HEAD is atraumatic. moist mucous membranes. Neck: Supple, normal range of motion Back: Nontender, no CVA tenderness. Full range of motion Cardiovascular: Regular rate and rhythms no murmurs rubs Respiratory: No respiratory distress. Patient speaking in full complete sentences. Breath sounds clear to auscultation bilaterally: NO W/R/R Abdomen: Soft, nontender nondistended, no appreciable organomegaly. Normal bowel sounds. No rebound/guarding, No appreciable enlargement of the abdominal aorta, No ascites. Rectal: Nontender. no stool palpated, no impcation,Heme negative stool. No mass/ hemorrhoid, no fissure. Extremity: No edema, full range of motion of extremities Neuro: Alert oriented x3, motor sensory normal,There were no obvious focal neurologic abnormalities. Skin: No appreciable rash on exposed skin, skin is warm and dry. Psych: Mood and affect is normal, memory and judgment is normal. Core Measures ACS in differential dx? No Severe Sepsis Present: No Septic Shock Present: No (JOE GILL) Progress Differential Diagnosis: bowel obstruction, colon cancer, diverticulitis, hernia, ischemic bowel, inflamm bowel dis, SBO Plan of Care: Orders Procedure Date/time Status CBC WITHOUT DIFFERENTIAL 03/20 2127 Complete BASIC METABOLIC PANEL 03/20 2127 Complete Laboratory Tests 03/20/172135: Anion Gap 8, Estimated GFR > 60, BUN/Creatinine Ratio 23.8, Glucose 109 H, Calcium 9.4, CBC w Diff NO MAN DIFF REQ, RBC 4.31 L, MCV 94.4 H, MCH 30.7, RDW 16.2 H, MPV 6.7 L, Gran % 74.2, Lymphocytes % 12.5 L, Monocytes % 10.1 H, Eosinophils % 2.9, Basophils % 0.3, Absolute Granulocytes 7.2 H, Absolute Lymphocytes 1.2, Absolute Monocytes 1.0 H, Absolute Eosinophils 0.3, Absolute Basophils 0, PUBS MCHC 32.6 L labs and xray ordered, d/w the pt his results, he has been seen numerous times for the same complaint. i saw him 2 days ago had a bm after enema here, owever states today its been at least 4 days since his last bm. i d/w and attempted to have the pt stay for case management consult in am as i am concerned about his dementia contributing to the patients complaints. Discussed with case management. THe patient became agitated at the thought of staying over night for case management, d/w him that i am concerned regarding his symtpoms and numerous presentaions. He refuses case management services. i asked the pt if i may anna his daughter anna which he states she is not to be contacted regarding hsi medical care. Case management will elderly protective services to his house for eval tomorrow.case d./w dr valencia agrees withp guerda PATIENT: JOE HORN JR PRESENT AGE: 81 PATIENT ACCOUNT NO: [id number] : 37 LOCATION: [facility] ORDERING PHYSICIAN: JOE NEELY SERVICE DATE: 03/20/17 EXAM TYPE: RAD - [id number] VIEWS EXAMINATION: XR ABDOMEN MULTIPLE VIEWS CLINICAL INDICATION: Constipation. COMPARISON: CT of the abdomen and pelvis from 03/02/2017 TECHNIQUE: Supine and upright views of the abdomen FINDINGS: There is moderate stool throughout the colon and within the rectum. No dilated loops of bowel are visualized. No free air under the hemidiaphragms. The lung bases are clear. There is thoracolumbar spondylosis and 8 mild dextroconvex lumbar scoliosis. There is an interspinous spacing device at L4-L5. No acute osseous abnormalities. IMPRESSION: Nonobstructive bowel gas pattern. Moderate stool throughout the colon. DICTATED BY: MERLYN NIXON MD DATE/TIME DICTATED:03/20/172157 [employer] FORMER:CIRA DATE/TIME TRANSCRIBED:03/20/172157 CONFIDENTIAL, DO NOT COPY WITHOUT APPROPRIATE AUTHORIZATION. <Electronically signed in Other Vendor System> SIGNED BY: MERLYN NIXON MD 03/20/172203 (JOE GLIL) Diagnostic Imaging: Viewed by Me: Radiology Read. Discussed w/RAD: Radiology Read. Initial ED EKG: none (JOE GILL) Departure Departure Time of Disposition: 2213 Disposition: HOME OR SELF CARE Condition: Stable Clinical Impression Primary Impression: Constipation Referrals: PATIENT HAS NO PRIMARY CARE DR (PCP/Family) Additional Instructions: FOLLOW UP WITH YOUR PMD AND RECRUITMENT OFFICER TOMORROW Departure Forms: Customer Survey General Discharge Information (JOE GILL) PA/SUPERINTENDENT CUSTODIAN JANITOR Co-Sign Statement Statement: ED Attending supervision documentation- x I saw and evaluated the patient. I have also reviewed all the pertinent lab results and diagnostic results. I agree with the findings and the plan of care as documented in the PA's/SUPERINTENDENT CUSTODIAN JANITOR's documentation. [] I have reviewed the ED Record and agree with the PA's/SUPERINTENDENT CUSTODIAN JANITOR's documentation. [] Additions or exceptions (if any) to the PAs/SUPERINTENDENT CUSTODIAN JANITOR's note and plan are summarized below: [] (MIKE WHITE,OLEGARIO)
[2017-03-20 21:43] LABS: ABSOLUTE BASOPHIL COUNT 0 /CUMM (0.0-0.2); ABSOLUTE EOSINOPHIL COUNT 0.3 /CUMM (0.0-0.7); ABSOLUTE GRANULOCYTE CT 7.2 /CUMM (1.4-6.5); ABSOLUTE LYMPH COUNT 1.2 /CUMM (1.2-3.4); BASOPHIL % 0.3 % (0.0-2.0); EOSINOPHIL % 2.9 % (0-5); GRANULOCYTE % 74.2 % (42.2-75.2); HEMATOCRIT 40.7 % (42-52); MEAN CORPUSCULAR HGB 30.7 PG (27.0-31.0); MEAN CORPUSCULAR HGB CONC 32.6 G/DL (33.0-37.0); MEAN CORPUSCULAR VOLUME 94.4 FL (80.0-94.0); MEAN PLATELET VOLUME 6.7 FL (7.4-10.4); PLATELET COUNT 346 /CUMM (130-400); RBC DISTRIBUTION WIDTH 16.2 % (11.5-14.5); RED BLOOD CELL CT 4.31 /CUMM (4.70-6.10); WHITE BLOOD CELL COUNT 9.7 /CUMM (4.8-10.8)
--- NOTE | 2017-03-20 22:04 | RADIOLOGY REPORT ---
EXAMINATION: XR ABDOMEN MULTIPLE VIEWS CLINICAL INDICATION: Constipation. COMPARISON: CT of the abdomen and pelvis from 03/02/2017 TECHNIQUE: Supine and upright views of the abdomen FINDINGS: There is moderate stool throughout the colon and within the rectum. No dilated loops of bowel are visualized. No free air under the hemidiaphragms. The lung bases are clear. There is thoracolumbar spondylosis and 8 mild dextroconvex lumbar scoliosis. There is an interspinous spacing device at L4-L5. No acute osseous abnormalities. IMPRESSION: Nonobstructive bowel gas pattern. Moderate stool throughout the colon.
--- NOTE | 2017-03-21 09:26 | NUR ---
03/21 CASE MGMT- NOTE ON DESK IN REGARD OF PT WHOM IS DEMENTIA PT CAME HERE DUE TO COSTIPATION LAST NIGHT. PT ALREADY GONE WHEN THIS CASE MGMT ARRIVED. NOTE FROM JOE NEELY STATES PT HAS BEEN SEEN IN ER 9 TIMES THIS MONTH, NEEDS EDERLY PROTECTIVE SERVICES- PT WOUND NOT STAY- WALKED OUT OF ER- TRIED TO GET INTO WRONG CAR 2 NIGHTS AGO. CALL PLACED TO PT HOUSE WITH NO ANSWER AT 9:08 AM CALL PLACED TO [facility] FOR WELLNESS CHECK AT APPROX 9:10AM AND SPOKE WITH RORO AT PD DEPT. CALL PLACED TO EPS AND SPOKE WITH DAMARIS WHOM STATES PT ALREADY HAS A CASE OPEN SOCOAL WORKER ASSIGNED TO PT NAME MARY JO WILBURN OF THE [facility] PHONE NUMBER [phone] AND THAT HE WILL INFORM HIM OF UPDATE. DAMARIS DIRECT NUMBER [phone] FOR EPS AND WOULD LIKE TO BE UPDATED AFTER WE RECEIVE WORD FROM [facility]. ATTEMPTED TO CONTACT PT DAUGHTER POLY WITH PHONE NUMBER LISTED [phone] WITH NO SUCCESS, MAN ANSWERED THE PHONE AND STATES THERE IS NO PLOY AT PHONE NUMBER LISTED. AWAITING RETURN CALL BACK FROM [facility] [employer].
--- NOTE | 2017-03-21 10:34 | NUR ---
03/21 CASE MGMT- PER DR AGUIRRE ER NOTE ON 03/19/17 STATES IN ER NOTE THAT CASE WAS DISCUSSED WITH CASE MGMT- PT DECLINING CASE MGMT SERVIES AND THAT CASE MGMT WILL SENT TEAM TO HIS HOME FOR ASSESSMENT- SHONEK WITH JOHN AND NO CASE MGMT TEAM WAS NOTIFIED OF CASE.
--- NOTE | 2017-03-21 13:41 | NUR ---
03/21/17 ADI. SPOKE WITH ENDY KEY RE: EARLIER CALL TO THEM BY [facility]I PEREZ REQUEST FOR WELL CHECK ON THE PATIENT. PER ENDY HORN WAS NOT AT THE ADDRESS WHEN CHECKED.
--- NOTE | 2017-03-21 14:45 | NUR ---
03/21 CASE MGMT- CALL FROM DAMARIS BAHENA AND GIVEN UPDATE- [facility] HASN'T GOTTEN AHOLD OF PT AND ATTEMPTED TO CONTACT PT DAUGHTER WITH NO SUCCESS. 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 ATTEMPTING CONTACT PT AGAIN WITH NO SUCCESS MESSAGE LEFT.
--- NOTE | 2017-03-22 15:58 | NUR ---
03/22 CASE MGMT- FINALLY WAS ABLE TO GET AHOLD OF PT AND SUGGESTED SET UP OF [facility]. PT DECLINING AT THIS.
--- NOTE | 2017-03-22 16:05 | NUR ---
03/22 CASE MGMT- WHEN SPEAKING WITH PT DID GIVE PT CASE MGMT PHONE NUMBER AND PT DID READ PHONE NUMBER BACK AND WAS ENCOURAGED THAT IF HE CHANGED HIS MIND WE COULD SET UP SERVICES [facility] FOR HIM.
--- NOTE | 2017-03-22 17:14 | NUR ---
03/22 CASE MGMT- PT CALLED AND STATES HE IS CONSTIPATED AGAIN AND HAS A QUESTION REGARDING HIS CONSTIPATION MEDS BUT NEEDS TO FIND HIS MEDICATIONS FIRST AND WILL CALL US BACK.
--- NOTE | 2017-03-27 22:39 | ED CARE PLAN ---
Plan of Care - Updated by [facility] of patient with recurrent visit for med refills, confusion, agitation repetitively requesting advice from pharmacist.
[2017-04-03] MEDS ORDERED: CIPRO500 M1 PO (04:01)
== END 2017-03-20 23:00 ==
LOC: ERH 19:30
PROVIDERS: Physician Assistant Medical
DX: K59.00 Constipation, unspecified (principal)
CPT/HCPCS: 74020

== ENCOUNTER 2017-03-30 08:20 | Emergency (ER) | payer OTHER, MEDICARE ==
[~2017-03-30] VITALS: Ht 189.2 cm; Wt 77.1 kg
--- NOTE | 2017-03-30 09:25 | ED GI/GU/ABDOMINAL COMPLAINT ---
History of Present Illness General Chief Complaint: General Adult Stated Complaint: CONSTIPATION "I NEED AN EMEMA" Source: patient Exam Limitations: no limitations Allergies Coded Allergies: No Known Allergies (03/20/17) Reconcile Medications Clopidogrel Bisulfate (Clopidogrel) 75 MG TABLET 1 TAB PO DAILY HX DVT ( Reported) Docusate Sodium (Colace) 100 MG CAPSULE 1 CAP PO BID CONSTIPATION Donepezil HCl (Aricept) 10 MG TABLET 1 TAB PO QPM DEMENTIA (Reported) Fluticasone Propionate 16 GM SPRAY.SUSP 1 SPRAY NASB BID ALLERGIES (Reported) Linaclotide (Linzess) 145 MCG CAPSULE 1 CAP PO DAILY GI (Reported) Loteprednol Etabonate (Lotemax) 5 GM DROPS.GEL 1 DROP OPH BID BOTH EYES ( Reported) Pantoprazole Sodium 40 MG TABLET.DR 1 TAB PO DAILY AC GI (Reported) Peg 3350/Na Sulf,Bicarb,Cl/KCl (Golytely Solution) 236-22.74G SOLN.RECON 8 OZ PO [id number] PRN CONSTIPATION Polyethylene Glycol 3350 (Miralax) 17 GRAM/DOSE POWDER 17 GM PO BID CONSTIAPTION mix with water, juice, soda, coffee or tea Sennosides (Senna) 8.6 MG TABLET 1-2 TAB PO BID CONSTIPATION Sertraline HCl 100 MG TABLET 1 TAB PO DAILY MENTAL HEALTH (Reported) Simvastatin (Simvastatin*) 40 MG TABLET 1 TAB PO QPM CHOLESTEROL (Reported) Tamsulosin HCl (Flomax) 0.4 MG CAP.ER.24H 1 CAP PO DAILY urine issues Triazolam 0.25 MG TABLET 1 TAB PO QPM SLEEP (Reported) Triage Note: TRIAGE: 81 Y/O MALE PRESENTS C/O CONSTIPATION - HAS HAD "PARTIAL POOPS ON AND OFF FOR SOME DAYS. NOW I'M IMPACTED AND IN SOME PAIN. I NEED AN ENEMA IS WHAT I NEED. I DON'T WANNA BE KEPT OVERNIGHT UNLESS IT'S ABSOLUTELY CRITICAL." HISTORY OF CHRONIC CONSTIPATION AND DEMENTIA. Triage Nurses Notes Reviewed? yes Onset: Abrupt Duration: unknown duration, waxing and waning Timing: recent history Location: generalized abdomen Radiation: no radiation No Modifying Factors: none HPI: 81-year-old male comes into emergency room with complaints of constipation. Patient has been seen here many times before. Patient has a care plan. Denies any chest pain shortness of breath fever chills vomiting. He reports that his bowel movements are minimal. Denies any pain currently. Denies any symptoms currently. (DAYO CUEVAS) Vital Signs & Intake/Output Vital Signs & Intake/Output Vital Signs Date Time Temp Pulse Resp B/P B/P Pulse O2 O2 Flow FiO2 Mean Ox Delivery Rate 03/30 1110 98.3 74 15 139/61 100 Room Air 03/30 1051 50 181/86 03/30 1015 69.0 48 14 133/68 99 Nasal 3.0L Cannula 03/30 0903 99 Room Air 03/30 0826 96.8 56 18 136/65 97 Room Air Room Air Past History Travel History Traveled to [place] past 21 day No Medical History Any Pertinent Medical History? 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 No (DAYO CUEVAS) Review of Systems Review of Systems Constitutional: Reports: no symptoms. EENTM: Reports: no symptoms. Respiratory: Reports: no symptoms. Cardiovascular: Reports: no symptoms. GI: Reports: see HPI. Genitourinary: Reports: no symptoms. Musculoskeletal: Reports: no symptoms. Skin: Reports: no symptoms. Neurological/Psychological: Reports: no symptoms. Hematologic/Endocrine: Reports: no symptoms. Immunologic/Allergic: Reports: no symptoms. All Other Systems: Reviewed and Negative (DAYO CUEVAS) Physical Exam Physical Exam General Appearance: well developed/nourished, alert, awake Head: atraumatic Eyes: Bilateral: normal appearance, EOMI. Ears, Nose, Throat, Mouth: hearing grossly normal, moist mucous membrane Neck: normal inspection Respiratory: normal breath sounds, no respiratory distress Cardiovascular: regular rate/rhythm Gastrointestinal: normal bowel sounds, soft, non-tender Back: normal inspection Extremities: normal range of motion Neurologic/Psych: awake, alert, oriented x 3, Mini-Mental Status exam score 25 out of 30 Skin: intact, normal color Core Measures ACS in differential dx? No Severe Sepsis Present: No Septic Shock Present: No (DAYO CUEVAS) Progress Differential Diagnosis: bowel obstruction, colon cancer, gastritis, pancreatitis , prostatitis, ureterolithiasis, urinary retention, urethritis, UTI/pyelo Diagnostic Imaging: Viewed by Me: Radiology Read. Discussed w/RAD: Radiology Read. Radiology Impression: SERVICE DATE: 03/30/17 EXAM TYPE: RAD - XRY-ABDOMEN -SINGLE VIEW EXAMINATION: XR ABDOMEN CLINICAL INDICATION: Abdominal pain. COMPARISON: Prior plain films of 03/20/17. CT scan of 03/02/17. TECHNIQUE: Supine and erect films of the abdomen were obtained. of the abdomen. FINDINGS: There is a normal nonobstructive bowel gas pattern. There is no free air. Tiny nonobstructing right renal calculi are again demonstrated. The lung bases are clear. Multilevel degenerative disease in the lower thoracic and lumbar spine with spinal fusion hardware at L4-L5 is unchanged. IMPRESSION: No acute abnormality. DICTATED BY: CHERYLE LARA MD DATE/TIME DICTATED:03/30/17946 PHYSICAL GEOGRAPHER:CIRA Initial ED EKG: normal intervals, normal p-waves, normal sinus rhythm, rate (48) Comments: 03/30/2017 11:26:56 AM Patient squirted 25 out of 30 on his Mini-Mental status exam. Patient appears to be competent enough to make his own medical decisions. Patient wants to leave. He feels better. He had a bowel movement. His symptoms have resolved. Patient has been seen here many times before. Case management has been involved. EPS has been involved with the patient's care at home. Patient was seen and evaluated by Dr. Tinajero. Return if any other concerns worsening symptoms. (DAYO CUEVAS) Plan of Care: Orders Procedure Date/time Status ED CRISIS PSYCH CONSULT 03/30 952 Active TROPONIN LEVEL 03/30 924 Complete COMPREHENSIVE METABOLIC PANEL 03/30 924 Complete CBC WITHOUT DIFFERENTIAL 03/30 924 Complete EKG 03/30 924 Active Laboratory Tests 03/30/17 1047: Urine Color Cancelled, Urine Clarity Cancelled, Urine pH Cancelled, Ur Specific [place] Cancelled, Urine Protein Cancelled, Urine Ketones Cancelled, Urine Nitrite Cancelled, Urine Bilirubin Cancelled, Urine Urobilinogen Cancelled, Ur Leukocyte Esterase Cancelled, Ur Microscopic Cancelled, Urine Hemoglobin Cancelled, Urine Glucose Cancelled 03/30/17 0955: Anion Gap 5, Estimated GFR > 60, BUN/Creatinine Ratio 20.0, Glucose 89, Calcium 8.9, Total Bilirubin 0.4, AST 21, ALT 34, Alkaline Phosphatase 99, Troponin I < 0.01, Total Protein 5.8 L, Albumin 3.5, Globulin 2.3, Albumin/Globulin Ratio 1.5, CBC w Diff NO MAN DIFF REQ, RBC 4.38 L, MCV 94.1 H, MCH 30.9, RDW 16.0 H , MPV 7.3 L, Gran % 73.6, Lymphocytes % 11.0 L, Monocytes % 12.4 H, Eosinophils % 2.9, Basophils % 0.1, Absolute Granulocytes 6.1, Absolute Lymphocytes 0.9 L, Absolute Monocytes 1.0 H, Absolute Eosinophils 0.2, Absolute Basophils 0, PUBS MCHC 32.9 L 03/30/17 0934: Methadone Screen Cancelled, Barbiturate Screen Cancelled, Ur Phencyclidine Scrn Cancelled, Amphetamines Screen Cancelled, U Benzodiazepines Scrn Cancelled, Urine Cocaine Screen Cancelled, Urine Cannabis Screen Cancelled Departure Departure Disposition: HOME OR SELF CARE Condition: Stable Clinical Impression Primary Impression: Constipation Referrals: PATIENT HAS NO PRIMARY CARE DR (PCP/Family) Additional Instructions: Follow-up with your primary care doctor. Return if any concerns worsening symptoms. Please go over all results of today's visit with your primary care doctor. Contact your primary care doctor to let them know you were here in the emergency room. There may be nonspecific findings which may not be related to your visit today here in the emergency room but may require further evaluation and chronic monitoring by your primary care doctor. If you had a laceration today the chance of foreign body always remains. You should follow-up with your primary care doctor for recheck in 3-5 days for a wound check. If you had an x-ray done there is a chance that a fracture could have been missed on initial read and you should follow-up with your primary care doctor for repeat x-rays if symptoms persist. If your blood pressure was elevated here in the emergency room please have rechecked by her primary care doctor within the next 48 hours by your primary care doctor. If you were prescribed a narcotic here in the emergency room or any type of controlled substances you're not allowed to drive while taking this medication or operate any type of heavy machinery. Narcotics can make you feel lightheaded dizziness nausea and can cause constipation. You may need to picked edge sewing machine operator a stool softener. Thank you for choosing [facility] emergency room. Please return to the emergency room immediately if you have any other concerns worsening of symptoms. Departure Forms: Customer Survey General Discharge Information (DAYO CUEVAS) PA/COIL WINDER STRAP Co-Sign Statement Statement: ED Attending supervision documentation- [X] I saw and evaluated the patient. I have also reviewed all the pertinent lab results and diagnostic results. I agree with the findings and the plan of care as documented in the PA's/COIL WINDER STRAP's documentation. [] I have reviewed the ED Record and agree with the PA's/COIL WINDER STRAP's documentation. [] Additions or exceptions (if any) to the PAs/COIL WINDER STRAP's note and plan are summarized below: [] (JOHAN WHITE,DICK Pond)
--- NOTE | 2017-03-30 09:54 | RADIOLOGY REPORT ---
EXAMINATION: XR ABDOMEN CLINICAL INDICATION: Abdominal pain. COMPARISON: Prior plain films of 03/20/17. CT scan of 03/02/17. TECHNIQUE: Supine and erect films of the abdomen were obtained. of the abdomen. FINDINGS: There is a normal nonobstructive bowel gas pattern. There is no free air. Tiny nonobstructing right renal calculi are again demonstrated. The lung bases are clear. Multilevel degenerative disease in the lower thoracic and lumbar spine with spinal fusion hardware at L4-L5 is unchanged. IMPRESSION: No acute abnormality.
[2017-03-30 10:06] LABS: ABSOLUTE BASOPHIL COUNT 0 /CUMM (0.0-0.2); ABSOLUTE EOSINOPHIL COUNT 0.2 /CUMM (0.0-0.7); ABSOLUTE GRANULOCYTE CT 6.1 /CUMM (1.4-6.5); ABSOLUTE LYMPH COUNT 0.9 /CUMM (1.2-3.4); BASOPHIL % 0.1 % (0.0-2.0); EOSINOPHIL % 2.9 % (0-5); GRANULOCYTE % 73.6 % (42.2-75.2); HEMATOCRIT 41.2 % (42-52); MEAN CORPUSCULAR HGB 30.9 PG (27.0-31.0); MEAN CORPUSCULAR HGB CONC 32.9 G/DL (33.0-37.0); MEAN CORPUSCULAR VOLUME 94.1 FL (80.0-94.0); MEAN PLATELET VOLUME 7.3 FL (7.4-10.4); PLATELET COUNT 299 /CUMM (130-400); RED BLOOD CELL CT 4.38 /CUMM (4.70-6.10); WHITE BLOOD CELL COUNT 8.3 /CUMM (4.8-10.8)
[2017-03-30 11:10] VITALS: BP 139/61
--- NOTE | 2017-04-02 09:36 | NUR ---
04/02 CASE MGMT- RECEIVED NOTE TODAY REGARDING PT BEING IN ER ON 06/29/17 AND PT KEPT GOING BACK TO PHARMACY REQUESTING MEDS THAT HE ALREADY PICKED UP PHARMACIST CONCERNED ABOUT HIM TAKING CARE OF HIMSELF AT HOME. 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 CALL PLACED TO PT WELL AND MESSAGE LEFT TO SEE IF PT AGREEABE TO SET UP SERVICES. MESSAGE LEFT.
[2017-04-03] MEDS ORDERED: CIPRO500 M1 PO (04:01)
== END 2017-03-30 11:11 ==
LOC: ERH 08:20
PROVIDERS: Physician Assistant Medical
DX: K59.00 Constipation, unspecified (principal); R10.84 Generalized abdominal pain; F10.10 Alcohol abuse, uncomplicated
CPT/HCPCS: 74000; 80307; 93005; 93010

== ENCOUNTER 2017-04-16 21:48 | Emergency (ER) | payer OTHER, MEDICARE ==
[~2017-04-16] VITALS: Ht 188 cm; Wt 74.8 kg
[2017-04-16 22:09] VITALS: BP 143/60
== END 2017-04-16 23:05 | disposition admitted as inpatient to this hospital (09) ==
LOC: ERH 21:48
DX: Z76.0 Encounter for issue of repeat prescription (principal)

== ENCOUNTER 2017-04-20 11:06 | Inpatient (IN) | payer OTHER, MEDICARE ==
[~2017-04-20] VITALS: Ht 188 cm; Wt 77.1 kg
--- NOTE | 2017-04-20 11:16 | NUR ---
81 YO MALE TO TRIAGE FOR CONSTIPATION AND "SOME DIRRHEA IN BETWEEN" PT WAS SEEN IN ER YESTERDY FOR SAME "THEY CHECKED MY BELLY AND MY BOWELS" C/O LOWER ABD PAIN. PT DRINKING IN TRIAGE, TOLD TO REMIANS NPO AT THIS TIME. STATES THIS HAS BEEN GOING ON FOR OVER A WEEK, "MY BOWEL MOVEMENTS ARE SMALL" DENIES TRYING ANY OTC STOOL SOFTENERS.
--- NOTE | 2017-04-20 11:42 | NUR ---
SECURITY NOTIFIED OF POSSIBLE ELOPEMENT RISK PER DAYO NEELY.
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
--- NOTE | 2017-04-20 12:01 | NUR ---
04/20 CASE MGMT- CALL PLACED TO PT PEARL DIAZ [phone] AND MESSAGE LEFT AWAITING RETURN CALL BACK.
--- NOTE | 2017-04-20 12:02 | NUR ---
04/20 CASE MGMT- CALL PLACED TO DAUGHTER POLY PHONE NUMBER - WHICH I TRIED PREIOUSLY BUT WAS WRONG NUMBER I TRIED AGAIN AND VOICE MAIL STATES VOICE MAIL BOX IS FULL AND WAS NOT ABLE TO LEAVE A MESSGAE TO RETURN CALL.
--- NOTE | 2017-04-20 12:05 | NUR ---
04/20 CASE MGMT- ALSO CALLED MARY JO ASSURANCE AUDITOR AT [employer] THAT FOLLOWS PT IN THE COMMUNITY. MESSAGE LEFT AWAITING RETURN CALL BACK.
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
--- NOTE | 2017-04-20 12:43 | NUR ---
04/20 CASE MGMT- CALL FORM PT SON JOE- STATES THAT HE HAS BEEN IN [place] FOR THE LAST 10 DAYS AND IS LEAVING FOR [place] TOMORROW. JOE MADE AWARE PT WAS EVALUATED BY CHIN AND DR PRADO WITH A MINI MENTAL EXAM AND THEY FEEL AT THIS TIME PT DOES NOT HAVE CAPACITY FOR LIVING INDEPENDENTLY AND WILL NEED [address] IF NABIL PSYCH DEEMED NOT APPROPRIATE. I REQUESTED PT DAUGHTER POLY'S PHONE NUMBER FOR OUR RECORDS AND JOE STATES HE WILL CALL SISTER TO SEE IF SHE IS AVAILABLE TO COME HERE AND WILL CALL ME BACK. JOE ASKED HOW HE WOULD BE ABLE TO BRING PT HOME AND BE ABLE TO BE DISCHARGED. I INFORMED HIM THAT PT WOULD HAVE TO HAVE [address] AT ALL TIMES FOR PT TO SAFELY BE DISCHARGED. PT STATES HE WILL CALL ME BACK. AWAITING ON RETURN CALL BACK.
--- NOTE | 2017-04-20 13:29 | NUR ---
URINE CUP GIVEN FOR SPECIMEN
--- NOTE | 2017-04-20 13:33 | NUR ---
PATIENT HAS BEEN TO THE BATHROOM W/ HIS SITTER OUTSIDE OF THE DOOR. PATIENT IS NOTED BY THIS NURSE TO BE SMOKING IN THE BATHROOM. HAVE ASKED THE PATIENT FOR HIS CIGARETTES AND HIS ARTISTS' MODEL/MATCHES. PATIENT REFUSES AT FIRST BUT GIVES THIS NURSE 4 PACKS OF CIGARETTES AND ONE ARTISTS' MODEL.
--- NOTE | 2017-04-20 13:42 | NUR ---
CODE 7 AT THIS TIME D/T PATIENT ATTEMPTING TO ELOPE FROM THE DEPT. PATIENT IS UNABLE TO UNDERSTAND OR RECALL TO WHY WE ARE TREATING HIM HERE. PATIENT IS BECOMING VERBALLY BELIGERENT AND APPEARS TO BE ESCALATING PHYSICALLY. PATIENT IS REDIRECTED BACK TO HIS ROOM. CANNOT REMEMBER THAT MD AND PA HAVE EXPLAINED TO HIM WHY HE IS HERE. PATIENT IS NOW IN HIS EXAM ROOM AND SITTER REMAINS AT THE DOOR.
--- NOTE | 2017-04-20 14:18 | NUR ---
04/20 CASE MGMT- CALL PLACED TO PT SON JOE AND MESSAGE LEFT. ALSO PT PROVIDED NUMBER OF DAUGHTER POLY TO DR PRADO [phone] AND MESSAGE LEFT. AWAITING RETURN CALL BACK. CASE MGMT WILL CONTINUE TO FOLLOW.
[2017-04-20] MEDS ORDERED: NAMENDA XR28 M1 PO (14:31)
--- NOTE | 2017-04-20 14:48 | NUR ---
7-9 CASE MGMT- CALL FROM PT DAUGHTER POLY WHOM STATES SHE HAS NOT BEEN IN CONTACT WITH HER BROTHER. I MADE HER AWARE THAT I SPOKE WITH HIM EARLIER AND EXPLAINED HOW AT THIS TIME FEELS PT NOT COMPENTENT ENOUGH TO GO HOME WITH OUT [address] AND AWAITING A FORMAL PSYCH CAPACITY EVAL. PT DAUGHTER STATES REGARDING PT "HE WILL NOT BE ABLE TO MOVE IN WITH ME". I INFORMED HER THAT IF PSYCH DEEMS PT NOT TO HAVE CAPACITY AND PT DOESN'T MEET CRITERIA FOR AN ADMISSION THAT THE INSURANCE WILL NOT PAY FOR HOSPITAL STAY AND THAT WE WILL HAVE TO ISSUE A DENIAL LETTER. POLY STATES "MY BROTHER IS IN CHARGE OF THE FINANCIAL, I HAVE NOTHING TO DO WITH THAT". POLY STATES WILL ATTEMPT TO GET A HOLD OF BROTHER JOE.
--- NOTE | 2017-04-20 14:50 | NUR ---
04/20 CASE MGMT- WHILE ON THE PHONE WITH PT DAUGHTER JOE PANG PT SON CALLED AND LEFT VOICE MAIL STATING THAT [place] UNT[place] APPROX 7 PM THIS EVENING AND HE HAS NOT GOT IN TOUGH WITH HIS SISTER YET AND WILL CALL ME BACK AROUND 7 PM. I CALLED JOE BACK QUICKLY AND IT WENT STRAIGHT TO VOICEMAIL AND MESSAGE LEFT. AWAITING RETURN CALL BACK.
--- NOTE | 2017-04-20 15:10 | NUR ---
PATIENT RUMMAGES THRU HIS PERSONAL BELONGINGS AND PULLS OUT PERSONAL CORDLESS HOME PHONE HANDSET AND IS ATTEMPTING TO PLACE A CALL. WHEN HE IS QUESTIONED WHO HE IS CALLING, PATIENT STATES HE IS CALLING HIS DAUGHTER.
--- NOTE | 2017-04-20 15:15 | NUR ---
BEDSIDE TOILET IS GIVEN TO PATIENT HE WAS SMOKING IN THE BATHROOM EARLIER.
--- NOTE | 2017-04-20 16:27 | NUR ---
URINE TRIO SENT TO LAB.
--- NOTE | 2017-04-20 16:35 | ED PSYCHIATRIST/APRN CONSULT ---
Psychiatrist/ROUGHENER ED Consult Assessment and Plan: Reason for Consult: Dementia vs AMS, decision making capacity for safe dispo ( driving home, lives alone), psych med reccs for agitation in geriatric pt? Consulting MD: Dr Tinajero Identifying Info: 81 yo WM with 81 yo WM with h/o frequent ED visits for bowel issues, likely dementia, living alone with Elder Protective Services social work case manager in place. C/C: "You're from Psychiatry? Well, Im done talking now!" HPI: 81 yo WM with apparently progressive dementia, with past prescriptions for Namenda and Donepazil, unsure of medication status, presenting to ED for constipation. Pt with multiple ED visits (8 in March) for similar presentations over the last months. Pt was medically cleared for constipation or other acute abdominal issues, however was disorganized, disoriented, angry, confused, and labile in ED. Pt required several behavioral codes with security stand by to be called today. Per ED staff, this is pt's typical presentation and has had past workups for reversible causes of AMS, which have generally been negative. ED staff performed MMSE, 22/30. Pt did not appear to have cognitive capacity do drive home, which was worrisome to staff that he may inadvertantly harm himself or someone else while driving. Additionally, pt was noted to have a couple recent falls at home (lives alone) where he did not seek medical attention. Futher, pt stated that he no longer takes any meds because "I dont need them." Pt reportedly has home based assistant but "throws them out of the house." On examination, pt was immediately opposed to interview with psychitrist, was evasive and sarcastic. Pt was very poor historian and answered questions minimally. Pt stated that he wanted to go home, but did remain on ED room stretcher throughout interview. Pt was unable to state why he came to ED today and said "I have to get someone to give me information about my assets." When asked to clarify, shouted angrily, "My finances are none of you business!" Pt stated he did not have any medical problems, appeared confused if this was a hospital or some other office building. Pt seemed unaware that he came to ED seeking treatment for consitpation a few hours ago. When asked the date, replied "19" and could not elaborate. Pt unable to states names of his children , and redirected with "what kind of place is that, you can look it up, do your job!" Pt stated he "didnt need any medications, not taking any." Pt unable/ unwilling to discuss any medical hx, denied all psychiatric hx/psych meds/ therapy/detox/rehab (however has been presecribed sertraline per chart). Pt denies SI/HI/AVH and intermittenly refused to answer questions altogether. Pt was somewhat paranoid that staff were entrapping him to remain in the hospital. Pt was unable to engage in conversation about the risks/benefits of medical care /medications. Pt refused to speak to real estate underwriter after this point, demanded that his children be called but didnt believe they had been already by social work case manager. PMHx: Dementia Prostatitis Constipation Diarrhea Hx of abnormal ECG PMD: Dr Low (?) SurgHx: appendectomy, hernia repair Substance Use Hx: Pt denies misuse of alcohol or drugs. Stated last drink was about a month ago. Denies excessive drinking but would not give details. FamHx: Pt has son Farzad ([phone]) and daughter, Gretchen. Unknown medical, psych, MARION or suicide famhx. SocHx: Pt stated he lives alone about [address] 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 Home Med list (needs confirmation, pt may not be taking any at this time) Clopidogrel Bisulfate (Clopidogrel) 75 MG TABLET 1 TAB PO DAILY HX DVT ( Reported) Docusate Sodium (Colace) 100 MG CAPSULE 1 CAP PO BID CONSTIPATION Donepezil HCl (Aricept) 10 MG TABLET 1 TAB PO QPM DEMENTIA (Reported) Fluticasone Propionate 16 GM SPRAY.SUSP 1 SPRAY NASB BID ALLERGIES (Reported) Linaclotide (Linzess) 145 MCG CAPSULE 1 CAP PO DAILY GI (Reported) Memantine HCl (Namenda XR) 28 MG CAP.SPR.24 1 CAP PO DAILY DEMENTIA (Reported ) Polyethylene Glycol 3350 (Miralax) 17 GRAM/DOSE POWDER 17 GM PO BID CONSTIAPTION mix with water, juice, soda, coffee or tea Sennosides (Senna) 8.6 MG TABLET 1-2 TAB PO BID CONSTIPATION Sertraline HCl 100 MG TABLET 1.5 TAB PO DAILY MENTAL HEALTH (Reported) Simvastatin (Simvastatin*) 40 MG TABLET 1 TAB PO QPM CHOLESTEROL (Reported) Tamsulosin HCl (Flomax) 0.4 MG CAP.ER.24H 1 CAP PO DAILY urine issues Triazolam 0.25 MG TABLET 1 TAB PO QPM SLEEP (Reported) PLEASE SEE ED EVAL NOTES/PE FOR MEDICAL CLEARANCE VITALS: Vital Signs Date Time Temp Pulse Resp B/P B/P Pulse O2 O2 Flow FiO2 Mean Ox Delivery Rate 04/20 2358 97.8 60 18 132/64 98 Room Air 04/20 2152 98.0 57 16 133/60 98 Room Air 04/20 1636 97.6 57 18 167/70 95 Room Air 04/20 1115 98.4 65 18 135/65 98 Room Air LABS: Laboratory Tests 04/20 04/20 2057 1625 Chemistry Sodium (137 - 145 mmol/L) 140 Potassium (3.5 - 5.1 mmol/L) 4.9 Chloride (98 - 107 mmol/L) 104 Carbon Dioxide (22 - 30 mmol/L) 27 Anion Gap (5 - 16) 9 BUN (9 - 20 mg/dL) 12 Creatinine (0.7 - 1.2 mg/dL) 0.8 Estimated GFR (>60 ml/min) > 60 BUN/Creatinine Ratio (7 - 25 %) 15.0 Glucose (65 - 99 mg/dL) 86 Calcium (8.4 - 10.2 mg/dL) 9.6 Magnesium (1.6 - 2.3 mg/dL) 2.2 Total Bilirubin (0.2 - 1.3 mg/dL) 0.5 AST (17 - 59 U/L) 29 ALT (21 - 72 U/L) 29 Alkaline Phosphatase (< 127 U/L) 87 Total Protein (6.3 - 8.2 g/dL) 6.7 Albumin (3.5 - 5.0 g/dL) 4.2 Globulin (1.9 - 4.2 gm/dL) 2.5 Albumin/Globulin Ratio (1.1 - 2.2 %) 1.7 Vitamin B12 (239 - 931 pg/mL) Pending Folate (2.76 - 20.0 ng/mL) Pending Hematology CBC w Diff NO MAN DIFF REQ WBC (4.8 - 10.8 /CUMM) 10.4 RBC (4.70 - 6.10 /CUMM) 4.69 L Hgb (14.0 - 18.0 G/DL) 14.4 Hct (42 - 52 %) 44.1 MCV (80.0 - 94.0 FL) 94.0 MCH (27.0 - 31.0 PG) 30.7 RDW (11.5 - 14.5 %) 15.3 H Plt Count (130 - 400 /CUMM) 359 MPV (7.4 - 10.4 FL) 7.2 L Gran % (42.2 - 75.2 %) 70.8 Lymphocytes % (20.5 - 51.1 %) 13.8 L Monocytes % (1.7 - 9.3 %) 13.2 H Eosinophils % (0 - 5 %) 1.8 Basophils % (0.0 - 2.0 %) 0.4 Absolute Granulocytes (1.4 - 6.5 /CUMM) 7.4 H Absolute Lymphocytes (1.2 - 3.4 /CUMM) 1.4 Absolute Monocytes (0.10 - 0.60 /CUMM) 1.4 H Absolute Eosinophils (0.0 - 0.7 /CUMM) 0.2 Absolute Basophils (0.0 - 0.2 /CUMM) 0 PUBS MCHC (33.0 - 37.0 G/DL) 32.7 L Toxicology Urine Opiates Screen (>2000 NG/ML) < 100.00 Methadone Screen (>300 NG/ML) < 40 Barbiturate Screen (>200 NG/ML) < 60 Ur Phencyclidine Scrn (>25 NG/ML) < 6.00 Amphetamines Screen (>1000 NG/ML) < 100 U Benzodiazepines Scrn (>200 NG/ML) < 85 Urine Cocaine Screen (>300 NG/ML) < 50 Urine Cannabis Screen (>50 NG/ML) < 5.00 Urines Urine Color (YEL,AMB,STR) YEL Urine Clarity (CLEAR) CLEAR Urine pH (5.0 - 8.0) 6.5 Ur Specific [place] (1.001 - 1.035) 1.020 Urine Protein (NEG,<30 MG/DL) NEG Urine Ketones (NEG) NEG Urine Nitrite (NEG) NEG Urine Bilirubin (NEG) NEG Urine Urobilinogen (0.1 - 1.0 EU/dl) 0.2 Ur Leukocyte Esterase (NEG) NEG Ur Microscopic EXAM NOT REQUIRED Urine Hemoglobin (NEG) NEG Urine Glucose (N MG/DL) NEG ASSESSMENT: 81 yo WM with apparently progressive dementia, with past prescriptions for Namenda and Donepazil, unsure of medication status, presenting to ED for constipation. Pt with multiple ED visits for similar presentations over the last months, apparently a case under Utilization Review. Pt medically cleared for abdominal issues at this time, however pt is disorganized, forgetful , disoriented, angry, confused, and labile and it is reasonable that staff are concerned for pt's safety if leaving hospital unescorted, living alone (harjinder with h/o untreated falls) and driving. On exam, pt unable to logically process information or clearly communicate understanding of risks and benefits of medical care/medications, and appears to fluctuate in his responses over time so does not currently meet criteria for decision-making capacity. Capacity is a time-limited assessment and this may be reevaluated at a later time. At this point, pt will require additional SW resourses in place for safe discharge plan to be complete (family involvement, housing, driving, Elderly Protective Agency) . DSM5 DIAGNOSES: Major Neurocognitive Disorder (Dementia), without Psychosis DDx: Polypharmacy s/e, delirium +/- dementia, intoxication, neuro complications of recent fall RISK FACTORS: Elderly, over 65, , on (or nonadherent) with complex medication regimen, lives alone, with moderate and apparently progressive cognitive impairment, unknown psychiatric hx, driving, h/o untreated fall with head trauma. 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 PLAN: -pt lacks decision-making capacity for dc at this time, presents as gravely disabled d/t cognitive dysfunction likely attributable to known hx of dementia, but would eval for any causes of reversible AMS if baseline is unclear (ie: UA, utox, BAL, CBC, CMP, folate, B12, RPR) and consider fall/head trauma workup. -please have 1:1 sitter with p -pt should not be allowed to leave AMA -pt is at high risk of harm to self of others if he were to drive in this condition -please use conservative dose of haldol (0.5-1mg) for agitation -when pt more amenable, would obtain ECG d/t h/o "ECG abnormailty" per chart -avoid benzos and anticholinergics d/t increased s/e in the elderly -please consult with family if there is a medical POA/proxy that may be activated for alternate decision-making or conservatorship -if family unable to take this role, would consider contacting hospital guardian ad litum for emergency guardianship -please contact Elderly Portective Services ([place] [phone]) for additional coordination -would consider geropsych consult -case discussed with Dr Harper -please contact Psychiatry with questions
--- NOTE | 2017-04-20 16:57 | NUR ---
PATIENT HAS BEEN RESTING QUIETLY W/ SITTER AT THE DOOR. HAS OFFERED NO C/O.
--- NOTE | 2017-04-20 17:19 | NUR ---
CONTINUES TO ASK TO LEAVE TO BE ABLE TO DRIVE HOME. CONTINUALLY BEING REMINDED THAT HE IS NOT SAFE TO DRIVE HOME. AT PRESENT IT IS DIFFICULT FOR PATIENT TO RETAIN INFORMATION THAT IS GIVEN TO HIM. CONTINUOUS REALITY ORIENTATION IS PROVIDED.
--- NOTE | 2017-04-20 18:03 | NUR ---
PATIENT IS REQUESTING TO COME OUT OF ROOM TO STRETCH HIS LEGS. PATIENT IS INSTRUCTED THAT FOR SAFETY REASONS HE IS TO REMAIN IN HIS ROOM. HE IS FREE TO WALK AROUND IN THE ROOM BUT, IT IS NOT SAFE FOR HIM TO BE OUT IN THE HALLWAY.
--- NOTE | 2017-04-20 19:36 | NUR ---
04/20 CASE MGMT- PT SON JOE CALLED AND WAS INFORMED THAT PSYCH PERFORMED EVALUATION ON PT AND STATES PT LACKS DECISION MAKING CAPCITY FOR D/C AT THIS TIME AND WOULD NEED [address] OR WOULD HAVE TO MOVE IN WITH FAMILY WITH 24 HOUR SUPERVISION OR WOULD BE ADMITTED TO [facility] BUT WOULD BE ISSUED A DENIAL LETTER AND WOULD BE LIABLE FOR HOSPITAL STAY. PT SON STATES THAT HE WILL TAKE PT TO HIS SISTER JOHN MCINTOSH. I INFORMED JOE THAT I SPOKE WITH POLY AND DISCUSSED PLAN OF CARE AND POLY DIDN'T SEEM FOND OF IDEA OF PT MOVING IN WITH HER AND THAT HE MAY WANT TO DISCUSS PLAN OF CARE WITH SISTER. AGAIN DISCUSSED PLANS OF CARE OPTIONS WITH JOE AND JOE STATED "PT HAS AID IN PLACE AT HOME", I ASKED WHICH AGENCY AND HE STATED "HE HAD AIDS IN PLACE BUT HE WOULD EITHER HAVE THEM LEAVE OR WOULD TAKE HIS KEYS AND LEAVE THE HOUSE", I INFORMED HIM THAT THE PSYCH NOTE ALSO STATED THAT PT IS AT HIGH RISK OF HARM TO SELF AND OTHERS IF HE WERE TO DRIVE IN THIS CONDITION AND SHOULD NOT BE DRIVING ANYMORE AND A FAMILY MEMBER SHOULD REALLY THINK ABOUT TAKING HIS KEYS AWAY. PT SON JOE THEN STATES " I WILL BE THERE TO PICK HIM UP" I INFORMED JOE THAT I WOULD NEED TO MAKE SURE THAT THERE WAS A SAFE DISCHARGE PLAN FOR PT AND THAT IN AN EARLIER DISCUSSION HE MENTIONED THAT [place] IN THE M[place]ING AND THAT [place] WASN'T FOND OF PT COMING TO LIVE WITH HER SO I WOULD NEED TO SPEAK WITH POLY PRIOR TO ALLOWING JOE TO PICK PT UP FOR DISCHARGE TO MAKE SURE THAT THERE WAS A SAFE DISCHARGE PLAN FOR PT. JOE STATES HE IS CALLING HIS SISTER AND WILL CALL ME BACK. CASE MGMT WILL CONTINUE TO FOLLOW. SPEAK WITH PT
--- NOTE | 2017-04-20 20:20 | NUR ---
04/20 CASE MGMT- CALL TO PT SON JOE AND MESSAGE LEFT. AWAITING RETURN CALL BACK.
--- NOTE | 2017-04-20 20:45 | NUR ---
04/20 CASE MGMT- STILL AWAITING RETURN CALL BACK FROM PT SON JOE WITH NO CALL BACK, ATTEMPTED CONTACTING PT GARCIA PANG AND MESSAGE LEFT. CAN NOT OFFICIALLY AT THIS TIME ISSUE DENIAL LETTER FOR SOCIAL ADMIT DUE NOT BEING ABLE TO GET IN CONTACT WITH EITHER PEARL DIAZ OR GARCIA PANG BUT WILL BE ISSUED SOON WE ARE ABLE TO GET IN CONTACT WITH EITHER PT GARCIA PANG OR CHARISSE DIAZ. DAYO PHAM AWARE.
--- NOTE | 2017-04-20 20:50 | NUR ---
PER CHIN Pond, PT IS NOT ON PEC, CONTINUOUS OBS UNABLE TO BE CANCELLED PER CHIN Pond D/T COMPUTER SYSTEM.
--- NOTE | 2017-04-20 20:59 | NUR ---
IV STARTED FOR ADMISSION, BLOOD WORK DRAWN AND SENT TO LAB.
[2017-04-20 21:11] LABS: ABSOLUTE BASOPHIL COUNT 0 /CUMM (0.0-0.2); ABSOLUTE EOSINOPHIL COUNT 0.2 /CUMM (0.0-0.7); ABSOLUTE GRANULOCYTE CT 7.4 /CUMM (1.4-6.5); ABSOLUTE LYMPH COUNT 1.4 /CUMM (1.2-3.4); ABSOLUTE MONOCYTE COUNT 1.4 /CUMM (0.10-0.60); BASOPHIL % 0.4 % (0.0-2.0); EOSINOPHIL % 1.8 % (0-5); GRANULOCYTE % 70.8 % (42.2-75.2); HEMATOCRIT 44.1 % (42-52); MEAN CORPUSCULAR HGB 30.7 PG (27.0-31.0); MEAN CORPUSCULAR HGB CONC 32.7 G/DL (33.0-37.0); MEAN PLATELET VOLUME 7.2 FL (7.4-10.4); PLATELET COUNT 359 /CUMM (130-400); RBC DISTRIBUTION WIDTH 15.3 % (11.5-14.5); RED BLOOD CELL CT 4.69 /CUMM (4.70-6.10); WHITE BLOOD CELL COUNT 10.4 /CUMM (4.8-10.8)
--- NOTE | 2017-04-20 21:50 | NUR ---
VSS AND UPDATED. PT REMAINS ASKING, "WHAT AM I DOING HERE?" PT REORIENTED TO HOSPITAL AND WHY HE IS HERE. GAVE GINGERALE AND CRACKERS PER HIS REQUEST. RESP EVEN AND NONLABORED, EQUAL RISE AND FALL OF THE CHEST AND IN NAD. WCTM.
--- NOTE | 2017-04-20 22:18 | NUR ---
PT MADE HIS BED WITH EXTRA SHEETS AND BLANKETS, TOOK OFF SHOES, NONSLIP SOCKS APPLIED. PT RESTING IN BED. RAILS DOWN PER HIS REQUEST, STATES "THAT MAKES IT FEEL LIKE A CAGE AND THEN I CAN'T GET UP TO USE THE BATHROOM, PLEASE LEAVE IT DOWN." PT LAYING DOWN IN BED, COVERED UP WITH BLANKETS, APPEARS TO BE TRYING TO SLEEP.
--- NOTE | 2017-04-20 22:35 | History & Physical ---
SILAS WHITE,[facility] 04/20/17 2235: General Information and HPI MD Statement: I have seen and personally examined JOE CAREY JR and documented this H& P. The patient is a 81 year old M who presented with a patient stated chief complaint of [questions about colds]. Source of Information: patient Exam Limitations: dementia History of Present Illness: The patient is a 81-year-old male with a past medical history of dementia and constipation seen yesterday in the ED but is now presenting for questions regarding colds. He states that he may have some cold symptoms and that he believes his children also have colds at this time. The patient is agitated and states that there is nothing wrong with him and that he would like to go. He gets aggravated when the attending asked about his kids, living situation, and medications. The patient frequently visits the emergency department about every 2 days. He usually comes in with complaints of constipation and then returns for complaints of diarrhea. The emergency department team has tried to contact his 2 children Joe and Ricki regarding custody. However the nurse states that Joe has son would like the daughter Ricki to take custody of their father. And ricki does not want to take responsibility for the patient. The patient's current living on his own. Currently we are admitting the patient to the general medicine service for observation to prevent him from driving home at night. Given the patient's dementia he is at high risk for a motor vehicle accident. 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 He states that his car window is down and house is unlocked. The patient denies any fevers, chills, nausea or vomiting, chest pain, or abdominal pain. He currently has no complaints at the time. Allergies/Medications Allergies: Coded Allergies: No Known Allergies (03/20/17) Home Med list Clopidogrel Bisulfate (Clopidogrel) 75 MG TABLET 1 TAB PO DAILY HX DVT ( Reported) Docusate Sodium (Colace) 100 MG CAPSULE 1 CAP PO BID CONSTIPATION Donepezil HCl (Aricept) 10 MG TABLET 1 TAB PO QPM DEMENTIA (Reported) Fluticasone Propionate 16 GM SPRAY.SUSP 1 SPRAY NASB BID ALLERGIES (Reported) Linaclotide (Linzess) 145 MCG CAPSULE 1 CAP PO DAILY GI (Reported) Memantine HCl (Namenda XR) 28 MG CAP.SPR.24 1 CAP PO DAILY DEMENTIA (Reported ) Polyethylene Glycol 3350 (Miralax) 17 GRAM/DOSE POWDER 17 GM PO BID CONSTIAPTION mix with water, juice, soda, coffee or tea Sennosides (Senna) 8.6 MG TABLET 1-2 TAB PO BID CONSTIPATION Sertraline HCl 100 MG TABLET 1.5 TAB PO DAILY MENTAL HEALTH (Reported) Simvastatin (Simvastatin*) 40 MG TABLET 1 TAB PO QPM CHOLESTEROL (Reported) Tamsulosin HCl (Flomax) 0.4 MG CAP.ER.24H 1 CAP PO DAILY urine issues Triazolam 0.25 MG TABLET 1 TAB PO QPM SLEEP (Reported) Past History Travel History Traveled to [place] past 21 day No Medical History EENT: NONE Cardiovascular: NONE Respiratory: NONE Gastrointestinal: constipation Hepatic: NONE Renal: NONE Musculoskeletal: osteoarthritis, RUPTURED DISK Psychiatric: NONE Endocrine: NONE Blood Disorders: NONE Cancer(s): 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 Home Who Do You Live With? self Functional Ability ADLs Independent: dressing, eating, toileting, bathing. Ambulation: independent IADLs Independent: shopping, housework, finances, food prep, telephone, transportation. Review of Systems Review of Systems Constitutional: Denies: no symptoms. Cardiovascular: Denies: no symptoms. Respiratory: Denies: no symptoms. GI: Denies: no symptoms. Genitourinary: Denies: no symptoms. Musculoskeletal: Denies: no symptoms. Skin: Denies: no symptoms. Exam & Diagnostic Data Last 24 Hrs of Vital Signs/I&O Vital Signs Date Time Temp Pulse Resp B/P B/P Pulse O2 O2 Flow FiO2 Mean Ox Delivery Rate 04/20 2358 97.8 60 18 132/64 98 Room Air 04/20 2152 98.0 57 16 133/60 98 Room Air 04/20 1636 97.6 57 18 167/70 95 Room Air 04/20 1115 98.4 65 18 135/65 98 Room Air Intake & Output 04/21 0800 07 0000 04/20 1600 Intake Total Output Total Balance Patient 165 lb Weight Weight Reported by Patient Measurement Method Physical Exam General Appearance Alert, Cooperative, No Acute Distress, agitated when asked questions.angrily asks why medical providers are asking him so many question., is confused asked to confirm his pharmacy. He starts talking about how good medicines are for him. it takes several attempts for him to answer the question. , he appears unsure about which pharmacy he uses., he thinks that it is October. Correctly states it is 2016 and padma is president. Skin vertical scar on lumbar spine, dark pigmentation of his dorsal bilateral hands HEENT Atraumatic, PERRLA, EOMI Neck Supple Lymphatic no neck lymphadenopathy Cardiovascular Regular Rate, Normal S1, Normal S2, No Murmurs Lungs Clear to Auscultation, Normal Air Movement Abdomen Normal Bowel Sounds, Soft, No Tenderness, No Hepatospenomegaly, No Masses Neurological Cranial Nerves 3-12 NL Extremities No Clubbing, No Cyanosis, No Edema, Normal Pulses, No Tenderness/ Swelling Vascular Normal Pulses Last 24 Hrs of Labs/Estuardo: Laboratory Tests 04/20/172056: Anion Gap 9, Estimated GFR > 60, BUN/Creatinine Ratio 15.0, Glucose 86, Calcium 9.6, Magnesium 2.2, Total Bilirubin 0.5, AST 29, ALT 29, Alkaline Phosphatase 87 , Total Protein 6.7, Albumin 4.2, Globulin 2.5, Albumin/Globulin Ratio 1.7, Vitamin B12 Pending, Folate Pending, CBC w Diff NO MAN DIFF REQ, RBC 4.69 L, MCV 94.0, MCH 30.7, RDW 15.3 H, MPV 7.2 L, Gran % 70.8, Lymphocytes % 13.8 L, Monocytes % 13.2 H, Eosinophils % 1.8, Basophils % 0.4, Absolute Granulocytes 7.4 H, Absolute Lymphocytes 1.4, Absolute Monocytes 1.4 H, Absolute Eosinophils 0.2, Absolute Basophils 0, PUBS MCHC 32.7 L 04/20/17 1625: Urine Opiates Screen < 100.00, Methadone Screen < 40, Barbiturate Screen < 60, Ur Phencyclidine Scrn < 6.00, Amphetamines Screen < 100, U Benzodiazepines Scrn < 85, Urine Cocaine Screen < 50, Urine Cannabis Screen < 5.00, Urine Color YEL, Urine Clarity CLEAR, Urine pH 6.5, Ur Specific [place] 1.020, Urine Protein NEG, Urine Ketones NEG, Urine Nitrite NEG, Urine Bilirubin NEG, Urine Urobilinogen 0.2, Ur Leukocyte Esterase NEG, Ur Microscopic EXAM NOT REQUIRED, Urine Hemoglobin NEG, Urine Glucose NEG Assessment/Plan Assessment: A: The patient is a 81-year-old male with a past medical history of dementia and constipation being admitted for observation as a safety precaution due to his dementia and wanting to drive at night by himself. As Ranked By This Provider Problem List: 1. Dementia Assessment/Plan The patient is a 81-year-old male with a past medical history of dementia and constipation being admitted for observation as a safety precaution due to his dementia. Patient states that he has no complaints and wants to be let go. He wants to drive himself. He was very confused when asked about question regarding which pharmacy he uses. He believes that it is currently October. He does note that the years 2016 and at this present. His children Joe and Ricki neither want to take custody of their father. The patient agreed to stay if he can be discharged in the morning. He does not have the ability to make decisions at this time. We will need to place a social consult. We will also need to confirm his home meds -confirm home meds -social consult in AM -haldol 0.5-1mg for agitation 2. DVT prophylaxis Assessment/Plan lovenox 3. Full code status Assessment/Plan FULL CODE but need to confirm in AM -please confirm code status Core Measures/Miscellaneous Sepsis (View Protocol) Severe Sepsis Present: No Septic Shock Septic Shock Present: No ANANDA DIGGS MD 04/21/17 0004: Core Measures/Miscellaneous Acute Coronary Syndrome ACS Diagnosis: No Cerebrovascular Accident CVA/TIA Diagnosis: No Congestive Heart Failure CHF Diagnosis: No VTE (View Protocol) VTE Risk Factors: Acute medical illness, Age > 40 [facility] prophylaxis d/t: No contraindications No VTE Pharm Prophylaxis d/t: No contraindications VTE Diagnosis: No VTE Type: NONE VTE Confirmed by (Test): NONE Miscellaneous Documentation Attending Case Discussed With: CLINT SERRA MD Primary Care Physician: PATIENT HAS NO PRIMARY CARE DR Patient sees these Specialists NA Level of Patient Care: General Medicine Resident Review Statement Resident Statement: examined this patient, discussed with engineering intern, agreed with engineering intern Other Findings: This is a 81-year-old gentleman with past medical history of dementia, depression and hyperlipidemia who is coming to the emergency department for nonspecific complaints. The patient states that he originally came into the emergency department because he had a question regarding symptoms of a cold that both he and his kids have developed. During the time of our clinical interaction the history limited owing to the patient's clinical condition. Documentation and reports in the ER confirm that Mr Carey is frequently seen at the ER complaining of constipation and diarrhea. He was last seen here on 04/19/2017 where he was complaining of constipation. On the evening of 04/20/2017 the ER team attempted to find his next of kin so as to be able to stabilize him owing to altered mentation however was unable to do so prompting him to be admitted to the Gen. medical service. The patient however had no active complaints. He denied any fever, chills, nausea, vomiting. Endorses a good appetite. States that he fluctuates between having periods of constipation and loose bowel movements. E: Temperature 98.4, pulse 65, respirations 18, blood pressure 135/65. Saturating 98% on room air. HEENT: extraocular motion intact, no nystagmus. Nose is atraumatic. External auditory canal and Tympanic membranes clear. Pharynx normal. No swelling or edema. Neck: Supple, no lymphadenopathy, normal range of motion without pain or tenderness Skin:WNL. Spinal Surgical Scar Present Cardiovascular: Regular rate and rhythm, no murmurs rubs or gallops. Respiratory: Chest nontender. No respiratory distress. Increased breath sound bilaterally. Abdomen: Soft, nontender nondistended, no appreciable organomegaly. Normal bowel sounds. No ascites, no rebound or guarding. Extremity: No edema, no calf tenderness to palpation, normal and equal pulses. No crepitus or fluctuation. Neuro: , Oriented to Place, person, but not to time. CN 2 - 12 intact. L: White cell count 10.4, H&H 14.4 and 44.1. Platelets 359. Sodium 140, potassium 4.9, chloride 104, Coumadin exit 27 A/P: This is a 81-year-old gentleman with extensive past medical history who presented to the emergency department with nonspecific complaints. Owing to his disposition situation he will likely need to be admitted for the next 24-48 hours. Admit the patient to general medical service. Patient is unable to clearly articulate what is happening with his health. He expresses multiple times that he would like to be discharged however has agreed to stay if he can be discharged in the gmat tutor. He does not meet criteria for decision making at this point in time. We will obtain a social consultation in a.m. for evaluation. Resume home medications once these have been confirmed the patient was unable to do so at the emergency department owing to his clinical condition. Haldol (0.5-1mg) for agitation. Regular diet Lovenox for DVT prophylaxis Code Full code, please confirm in the morning as well. KELLY RICH 04/21/17 0502: Attending MD Review Statement Attending Statement Attending MD Statement: examined this patient, discuss w/resident/PA/TAXICAB STARTER, agreed w/resident/PA/TAXICAB STARTER, reviewed EMR data (avail), reviewed images, amended to note Attending Assessment/Plan: CC: disoriented PMH: Not available Patient had been in ER multiple times with various complaints, e.g. constipation , diarrhea, confusion. To be precise 21 times in ER since December 2016. One of these visits was from primary care office for suspected delirium. According to notes patient appears to have baseline dementia and on and off orientation. Elderly protective services have been involved in patient's care. This time patient came for constipation, he was found to be unable to take his medical and legal decisions, confirmed by psychiatrist. Patient intermittently starts yelling and tries to walk of of emergency department, insisted on driving home. ER tried to unsuccessfully contact daughter and son. Patient physically denies any complaints, does not provide any details about his medical problems or medications. Vitals, Complete physical examination and labs unremarkable except vitamin B12 290. Agree with psychiatrist plan that he would need social work resources for severe discharge planning, probable conservatorship. Checking TSH, U tox, RPR was replace B12 - Continue one-on-one sitter - Patient should not leave AMA - When necessary Haldol if required for severe agitation - Need to call pharmacy in a.m. to reconfirm his medications. No previous medical records are available at this point.
--- NOTE | 2017-04-20 23:04 | NUR ---
HOUSE STAFF AT BEDSIDE TO EVAL PT AT THIS TIME.
--- NOTE | 2017-04-21 00:10 | NUR ---
PT ASKING MULTIPLE QUESTIONS ABOUT WHEN HE IS GOING UPSTAIRS TO HIS BED. EXPLAINED TO PT HE DOES NOT HAVE A BED YET AND THIS RN WILL KEEP HIM UPDATED.
--- NOTE | 2017-04-21 00:47 | NUR ---
BED ASSIGNMENT 231-1 AT 0024
--- NOTE | 2017-04-21 00:50 | NUR ---
PT IS GOING TO 214-1
--- NOTE | 2017-04-21 01:05 | NUR ---
REPORT GIVEN TO FRANCIS MIXON.
[2017-04-21 02:00] VITALS: BP 152/70
--- NOTE | 2017-04-21 02:01 | NUR ---
NURSING NOTE: PT ARRIVED TO 2NA VIA WHEELCHAIR @ 0135. PT ALERT, AGITATED, AND ANXIOUS. SAFETY MONITOR AT BEDSIDE. ADMISSION ASSESSMENT COMPLETED. PT ALERT AND ORIENTED TO SELF AND LOCATION. ON RA. REFUSING TO CHANGE OUT OF CLOTHES AND SKIN ASSESSMENT. PT ORIENTED TO STAFF, ROOM, AND CALL PRADO. PT CURRENTLY RESTING COMFORTABLY IN BED.
--- NOTE | 2017-04-21 05:03 | Admission Certification ---
Admission Certification Certification Statement - As attending physician, I certify that at the time of - admission, based on clinical presentation, severity of - symptoms, need for further diagnostic testing and - therapeutic interventions, and risk of adverse outcomes - without in-hospital treatment, in my clinical assessment, - this patient requires an acute hospital stay for a minimum - of two nights or longer. I have also considered psychsocial - factors such as support system, advanced age, financial - issues, cognitive issues, and failed out-patient treatments, - past re-admission history, safety of patient, and lack of - compliance as applicable. Specific rationale supporting this admission is: Severe dementia, no decision-making capacity, unsafe for discharge
[2017-04-21 06:50] VITALS: BP 156/72
--- NOTE | 2017-04-21 11:37 | PN- Housestaff ---
Subjective Follow-up For: Social Admission Subjective: I have personally seen and examined the patient. Patient seems very agitated and wants to go home. I spoke with him and explained that he will be discharged after psych him today. A meeting has been arranged with the family this afternoon. Review of Systems Constitutional: Denies: see HPI. EENTM: Denies: see HPI. Cardiovascular: Denies: see HPI. Respiratory: Denies: see HPI. Gastrointestinal: Denies: see HPI. Genitourinary: Denies: see HPI. Musculoskeletal: Denies: see HPI. Objective Last 24 Hrs of Vital Signs/I&O Vital Signs Date Time Temp Pulse Resp B/P B/P Pulse O2 O2 Flow FiO2 Mean Ox Delivery Rate 04/21 1433 98.7 67 20 120/60 96 04/21 1156 Room Air 04/21 0650 97.9 68 18 156/72 04/21 0200 98.8 52 18 152/70 96 Room Air 04/20 2358 97.8 60 18 132/64 98 Room Air 04/20 2152 98.0 57 16 133/60 98 Room Air 04/20 1636 97.6 57 18 167/70 95 Room Air Intake & Output 04/21 1600 04/21 0800 04/21 0000 Intake Total 600 0 Output Total Balance 600 0 Intake, IV 0 Intake, Oral 600 0 Number 1 Bowel Movements Patient 170 lb Weight Weight Reported by Patient Measurement Method Physical Exam General Appearance: Alert, No Acute Distress Other Physical Findings: Skin No rashes, no breakdowns HEENT Atraumatic, PERRLA, EOMI Neck Supple Lymphatic no neck lymphadenopathy Cardiovascular Regular Rate, Normal S1, Normal S2, No Murmurs Lungs Clear to Auscultation, Normal Air Movement Abdomen Normal Bowel Sounds, Soft, No Tenderness, No Hepatospenomegaly, No Masses Neurological Cranial Nerves 3-12 NL Extremities No Clubbing, No Cyanosis, No Edema, Normal Pulses, No Tenderness/ Swelling Vascular Normal Pulses Current Medications: Current Medications Sig/Sherri Start time Last Medication Dose Route Stop Time Status Admin Cyanocobalamin 250 MCG DAILY 04/21 1000 AC 04/21 PO 1022 Enoxaparin Sodium 40 MG DAILY 04/21 1000 AC SC Melatonin 5 MG ONCE PRN 04/20 2330 AC PO Nicotine 14 MG Q24 PRN 04/20 2330 AC TOP Trazodone HCl 0 .STK-MED ONE 04/20 2347 DC PO Trazodone HCl 50 MG ONCE ONE 04/20 2345 DC 04/20 PO 04/206 2343 Last 24 Hrs of Lab/Estuardo Results Last 24 Hrs of Labs/Mics: Laboratory Tests 04/21/17 0858: RPR Titer/FTA NONREACTIVE 04/20/172056: Anion Gap 9, Estimated GFR > 60, BUN/Creatinine Ratio 15.0, Glucose 86, Calcium 9.6, Magnesium 2.2, Total Bilirubin 0.5, AST 29, ALT 29, Alkaline Phosphatase 87 , Total Protein 6.7, Albumin 4.2, Globulin 2.5, Albumin/Globulin Ratio 1.7, Vitamin B12 290, Folate 11.2, CBC w Diff NO MAN DIFF REQ, RBC 4.69 L, MCV 94.0, MCH 30.7, RDW 15.3 H, MPV 7.2 L, Gran % 70.8, Lymphocytes % 13.8 L, Monocytes % 13.2 H, Eosinophils % 1.8, Basophils % 0.4, Absolute Granulocytes 7.4 H, Absolute Lymphocytes 1.4, Absolute Monocytes 1.4 H, Absolute Eosinophils 0.2, Absolute Basophils 0, PUBS MCHC 32.7 L 04/20/17 1625: Urine Opiates Screen < 100.00, Methadone Screen < 40, Barbiturate Screen < 60, Ur Phencyclidine Scrn < 6.00, Amphetamines Screen < 100, U Benzodiazepines Scrn < 85, Urine Cocaine Screen < 50, Urine Cannabis Screen < 5.00, Urine Color YEL, Urine Clarity CLEAR, Urine pH 6.5, Ur Specific [place] 1.020, Urine Protein NEG, Urine Ketones NEG, Urine Nitrite NEG, Urine Bilirubin NEG, Urine Urobilinogen 0.2, Ur Leukocyte Esterase NEG, Ur Microscopic EXAM NOT REQUIRED, Urine Hemoglobin NEG, Urine Glucose NEG Assessment/Plan Assessment: The patient is a 81-year-old male with a past medical history of dementia and constipation being admitted for observation as a safety precaution due to his dementia. Patient states that he has no complaints and wants to be let go. He wants to drive himself. He was very confused when asked about question regarding which pharmacy he uses. He believes that it is currently October. He does note that the years 2017 and at this present. His children Bryan neither want to take custody of their father. The patient agreed to stay if he can be discharged in the morning. He does not have the ability to make decisions at this time. -social consult -Psychiatric consult- awaiting recommendations -Patient was very agitated this morning as he wated to go home. A family meeting has been arranged with the daughter this afternoon. Problem List: 1. Hospital admission due to social situation Pain Ratin Pain Location: None Pain Goal: Remain pain free Pain Plan: None Tomorrow's Labs & Rationales: None
--- NOTE | 2017-04-21 11:40 | NUR ---
SPOKE WITH PATIENT DAUGHTER WHO DOES NOT UNDERSTAND WHY WE ARE KEEPING PATIENT HERE AGAINST HIS WILL, STATES THAT DESPITE PATIENT HAS ALZHEIMERS HE IS ABLE TO SHOWER AND COOK, WHEN INFORMED THAT PATIENT HAD VISITED THE ER 12 TIMES IN THE LAST MONTH OR SO, SHE STATES THAT IS BECAUSE HE DOESN'T REMEMBER IF HE MOVES HIS BOWELS OR NOT, DAUGHTER DID NOT FIND THIS TO BE A CONTRAINDICATION TO DISCHARGING THE PATIENT HOME WITH NO CARE IN PLACE, OR A REASON TO NOT LET HIM DRIVE. DAUGHTER INFORMED ME SHE WOULD DEAL WITH THE ISSUE AND THANKED ME FOR MY HELP. CONCETTA CASE MANAGEMENT AND DR SERRA AND TEAM AWARE OF CONVERSATION.
--- NOTE | 2017-04-21 14:22 | NUR ---
PATIENT WAS SMOKING IN BATHROOM, SECURITY CALLED, HUMAN RESOURCE CONSULTANT AND CIGARETTES CONFISCATED.
[2017-04-21 14:33] VITALS: BP 120/60
--- NOTE | 2017-04-21 16:46 | PN- Psychiatry ---
Assessment/Plan Impression: Identifying Info: 81-year-old male presents to emergency department for constipation the 21st time this year. He has a known history of dementia and was found to lack decision making capacity in the emergency department. Subsequently admitted socially and in interviewed on medicine. SUBJECTIVE Patient states "I went over to the emergency because my kid had a hoarse throat and I was worried about it." He again expresses worry that staff in the hospital or attempting to entrap him to remain in hospital. Does not appear to be able to comprehend why he is in hospital. He does not recall speaking to psychiatrist yesterday or agitation in the emergency department. It was explained to him that staff had spoken with his children and he frequently asked if his children had been contacted. He declined to participate in Mini-Mental Status exam. Discussed case with Farzad's daughter Geovanna via phone with resident and case management. She reported that she knows that her father has cognitive issues stating "he has good days and bad days." She also reported that at times she is very functional and does not need extra support. When asked how she would like to be involved in her father's care or if she had any input that would be helpful in guiding his care. she deferred to her brother who is the POA. Brief ROS Gait: Steady Sleep: Fair Appetite: Fair OBJECTIVE Mental Status Exam Presentation/Appearance: Calm and pleasant. Moderately cooperative with evaluation. Sitting in bed. Orientation: Oriented to self and place, date as Friday in October, year as "18" Sensorium: Awake and alert Eye contact: Appropriate Affect: Somewhat blunted Mood: "Fine" Depression: Denies Anxiety: Denies Thought Content: - Denies SI/HI, AH/VH, PI. States and also believes they will not kill themselves. - Denies Hopeless/Helpless Thoughts Thought Process: Linear at times but primarily circumstantial with some confusion Associations: Loose at times but appropriate at others Speech: Repetitive but normal tone and rate Judgment:Poor Insight: Poor Cognition: Memory: Deficits noted Attention/Concentration: Fair Fund of Knowledge: Adequate Abstractions: [place] MMSE: Did not complete today patient refused, yesterday 22 out of 30 indicating mild to moderate cognitive impairment Per nursing report the patient was irritable today because he was discovered smoking in the hospital bathroom and his cigarettes were subsequently confiscated. Per M.D. report he spoke to the patient's son who is POA. The son has been in contact with an assisted-living facility will be coming to evaluate the patient. Capacity assessment Patient's healthcare disposition decision making capacity evaluated. He is able to communicate a choice stating he would prefer to go home. He does not understand the relevant information, appreciate the situation and it's consequences, or display the abililty to reason about treatment options. Patient does not recall his confusion and frequently forgets things that were discussed just a moment before. ASSESSMENT 81-year-old male with previously diagnosed dementia again evaluated for healthcare decision-making capacity. At present he does not display the ability to satisfy capacity due to his cognitive impairment he is unable to logically process information. Diagnosis Major Neurocognitive Disorder (Dementia), without Psychosis A total of 45 minutes was spent with the patient with more than 50% of the time spent in counseling and/or coordination of care. Suggestion: 1. Appreciate case management and social work assistance in disposition planning. We will continue to try to involve family as much as possible. 2. Continue one-to-one sitter. 3. Patient may not leave AMA unless reassessed and found to have capacity at that time. 4. Please continue to avoid benzodiazepines, opioid analgesics, and meds with strong anticholinergic properties as much as possible to prevent further confusion. 5. Please initiate the following nonpharmacologic interventions: -Avoid nursing and medical procedures during sleep hours whenever possible - Cluster at night interventions that must be completed as much as possible to minimize sleep disruption - Decrease noise patient area during sleeping hours - Reduce lighting at night - Ensure patient has any sensory aids close by that he regularly uses 6. Consider melatonin 10 mg daily at bedtime. 7. If the patient is agreeable please consider nicotine replacement therapy. Thank you for including psychiatry in this case we will continue to follow Subjective Subjective: as above Objective Last 24 Hrs of Vital Signs/I&O Current Medications Sig/Sherri Start time Last Medication Dose Route Stop Time Status Admin Artificial Tears 2 GTT 4 TIMES/DAY 04/21 1800 AC OPH Cyanocobalamin 250 MCG DAILY 04/21 1000 AC 04/21 PO 1022 Docusate Sodium 100 MG BID 04/21 2200 AC PO Enoxaparin Sodium 40 MG DAILY 04/21 1000 AC SC Melatonin 5 MG ONCE PRN 04/20 233 AC PO Nicotine 14 MG Q24 PRN 04/20 2330 AC TOP Senna 187 MG AT BEDTIME 04/210 AC PO Trazodone HCl 0 .STK-MED ONE 04/207 DC PO Trazodone HCl 50 MG ONCE ONE 04/20 2345 DC 04/20 PO 04/20 2346 2343 Laboratory Tests 04/21/17 0858: RPR Titer/FTA NONREACTIVE 04/20/177: Anion Gap 9, Estimated GFR > 60, BUN/Creatinine Ratio 15.0, Glucose 86, Calcium 9.6, Magnesium 2.2, Total Bilirubin 0.5, AST 29, ALT 29, Alkaline Phosphatase 87 , Total Protein 6.7, Albumin 4.2, Globulin 2.5, Albumin/Globulin Ratio 1.7, Vitamin B12 290, Folate 11.2, CBC w Diff NO MAN DIFF REQ, RBC 4.69 L, MCV 94.0, MCH 30.7, RDW 15.3 H, MPV 7.2 L, Gran % 70.8, Lymphocytes % 13.8 L, Monocytes % 13.2 H, Eosinophils % 1.8, Basophils % 0.4, Absolute Granulocytes 7.4 H, Absolute Lymphocytes 1.4, Absolute Monocytes 1.4 H, Absolute Eosinophils 0.2, Absolute Basophils 0, PUBS MCHC 32.7 L 04/20/17 1625: Urine Opiates Screen < 100.00, Methadone Screen < 40, Barbiturate Screen < 60, Ur Phencyclidine Scrn < 6.00, Amphetamines Screen < 100, U Benzodiazepines Scrn < 85, Urine Cocaine Screen < 50, Urine Cannabis Screen < 5.00, Urine Color YEL, Urine Clarity CLEAR, Urine pH 6.5, Ur Specific [place] 1.020, Urine Protein NEG, Urine Ketones NEG, Urine Nitrite NEG, Urine Bilirubin NEG, Urine Urobilinogen 0.2, Ur Leukocyte Esterase NEG, Ur Microscopic EXAM NOT REQUIRED, Urine Hemoglobin NEG, Urine Glucose NEG Vital Signs Date Time Temp Pulse Resp B/P B/P Pulse O2 O2 Flow FiO2 Mean Ox Delivery Rate 04/21 1433 98.7 67 20 120/60 96 04/21 1156 Room Air 04/21 0650 97.9 68 18 156/72 04/21 0200 98.8 52 18 152/70 96 Room Air 04/20 2358 97.8 60 18 132/64 98 Room Air 04/20 2152 98.0 57 16 133/60 98 Room Air Intake & Output 04/21 1600 04/21 0800 04/21 0000 Intake Total 600 0 Output Total Balance 600 0 Intake, IV 0 Intake, Oral 600 0 Number 1 Bowel Movements Patient 170 lb Weight Weight Reported by Patient Measurement Method
--- NOTE | 2017-04-21 19:03 | Patient Discharge Instructions ---
Discharge Instructions General Discharge Information You were seen/treated for: Dementia and intermittent episodes of delirium Constipation Watch for these problems: Worsening confusion, urinary frequency, consitpation, fevers, chills Special Instructions: Please follow up with your PCP within 1 week after discharge Please take all medications as directed Diet Continue normal diet: Yes Activity Full Activity/No Limits: Yes Acute Coronary Syndrome Inclusion Criteria At DC or during hospital stay patient has or had the following: ACS DIAGNOSIS No Discharge Core Measures Meds if any: Prescribed or Continued at Discharge Meds if any: NOT Prescribed or Continued at Discharge Congestive Heart Failure Inclusion Criteria At DC or during hospital stay patient has or had the following: CHF DIAGNOSIS No Discharge Core Measures Meds if any: Prescribed or Continued at Discharge Meds if any: NOT Prescribed or Continued at Discharge Cerebrovascular accident Inclusion Criteria At DC or during hospital stay patient has or had the following: CVA/TIA Diagnosis No Discharge Core Measures Meds if any: Prescribed or Continued at Discharge Meds if any: NOT Prescribed or Continued at Discharge Venous thromboembolism Inclusion Criteria VTE Diagnosis No VTE Type NONE VTE Confirmed by (Test) NONE Discharge Core Measures - Per Current guidelines, there needs to be overlap - treatment for the first 5 days of Warfarin therapy. - If discharged on Warfarin prior to 5 days of - overlap therapy, the patient will need to be - assessed for post discharge needs including - *Post discharge parental anticoagulation - *Warfarin and/or parental anticoagulation education - *Follow up date to check INR post discharge At least 5 days overlap therapy as Inpatient No Meds if any: Prescribed or Continued at Discharge Note: Overlap Therapy is Warfarin and Anticoagulant Meds if any: NOT Prescribed or Continued at Discharge
[2017-04-21 22:34] VITALS: BP 156/80
--- NOTE | 2017-04-21 23:57 | NUR ---
PATIENT REQUESTED SLEEP AID. INSOLVENCY CONSULTANT SHREE NOTIFIED. PATIENT REFUSED THE MELATONIN. STATES "I WANT SOMETHING STRONGER THAN THAT." PER INSOLVENCY CONSULTANT "GIVE PATIENT THE MELATONIN AND IF HE CAN NOT SLEEP TO CALL HIM BACK." PATIENT WAS MADE AWARE AND HE STILL REFUSED TO TAKE THE MELATONIN. INSOLVENCY CONSULTANT NOTIFIED AND HE SAID THAT HE WILL CONSULT WITH HIS RESIDENT AND DECIDE WHAT TO DO.
[2017-04-22 06:45] VITALS: BP 132/66
--- NOTE | 2017-04-22 07:46 | PN- Housestaff ---
KERWIN WIHTE,[facility] 04/22/17 0746: Subjective Follow-up For: Social Admission Subjective: I have personally seen and examined the patient. Patient is calm today but still wants to go home. Plan is to send him to [facility] living tomorrow after talking to his son. Review of Systems Constitutional: Denies: no symptoms. EENTM: Denies: no symptoms. Cardiovascular: Denies: no symptoms. Respiratory: Denies: no symptoms. Gastrointestinal: Denies: no symptoms. Genitourinary: Denies: no symptoms. Musculoskeletal: Denies: no symptoms. Skin: Denies: no symptoms. Objective Last 24 Hrs of Vital Signs/I&O Vital Signs Date Time Temp Pulse Resp B/P B/P Pulse O2 O2 Flow FiO2 Mean Ox Delivery Rate 04/22 1526 98.0 59 20 142/76 96 04/22 0650 60 04/22 0645 98.6 44 20 132/66 97 Room Air 04/21 2234 97.8 57 20 156/80 94 Room Air Intake & Output 04/22 1600 04/22 0800 04/22 0000 Intake Total 800 200 480 Output Total Balance 800 200 480 Intake, Oral 800 200 480 Number 0 Bowel Movements Physical Exam General Appearance: Alert, Oriented X3, No Acute Distress Other Physical Findings: Skin No rashes, no breakdowns HEENT Atraumatic, PERRLA, EOMI Neck Supple Lymphatic no neck lymphadenopathy Cardiovascular Regular Rate, Normal S1, Normal S2, No Murmurs Lungs Clear to Auscultation, Normal Air Movement Abdomen Normal Bowel Sounds, Soft, No Tenderness, No Hepatospenomegaly, No Masses Neurological Cranial Nerves 3-12 NL Extremities No Clubbing, No Cyanosis, No Edema, Normal Pulses, No Tenderness/ Swelling Vascular Normal Pulses Current Medications: Current Medications Sig/Sherri Start time Last Medication Dose Route Stop Time Status Admin Artificial Tears 2 GTT 4 TIMES/DAY 04/21 1800 AC 04/22 OPH 1647 Cyanocobalamin 250 MCG DAILY 04/21 1000 AC 04/22 PO 1052 Docusate Sodium 100 MG BID 04/21 2200 AC 04/22 PO 1052 Enoxaparin Sodium 40 MG DAILY 04/21 1000 AC SC Melatonin 5 MG AT BEDTIME 04/22 2200 AC PO Melatonin 5 MG ONCE PRN 04/20 2330 AC 04/22 PO 0035 Nicotine 14 MG Q24 PRN 07/09 2330 AC TOP Senna 187 MG AT BEDTIME 04/21 2200 AC 04/21 PO 1911 Assessment/Plan Assessment: The patient is a 81-year-old male with a past medical history of dementia and constipation being admitted for observation as a safety precaution due to his dementia. Patient states that he has no complaints and wants to be let go. He wants to drive himself. He was very confused when asked about question regarding which pharmacy he uses. He believes that it is currently October. He does note that the years 2016 and at this present. His children Farzad and Jenelle neither want to take custody of their father. The patient agreed to stay if he can be discharged in the morning. He does not have the ability to make decisions at this time. - Patient will be going to the assisted living tomorrow. Son agrees with the plan. -No active medical issues at this time. Problem List: 1. Hospital admission due to social situation Pain Ratin Pain Location: None Pain Goal: Remain pain free Pain Plan: None Tomorrow's Labs & Rationales: None CLINT SERRA MD 04/22/17 1259: Attending MD Review Statement Attending Statement Attending MD Statement: examined this patient, discuss w/resident/PA/HEDDLE MACHINE OPERATOR, agreed w/resident/PA/HEDDLE MACHINE OPERATOR, reviewed EMR data (avail) Attending Assessment/Plan: Patient is more calm today. He does not have good insight into his disease or hospital stay. He is being evaluated for assisted living. No acute medical issues at this time. Will continue current management.
--- NOTE | 2017-04-22 13:36 | NUR ---
PT CONFUSED, ASKING FOR HIS ATTORNEYS NUMBER TO "PROTECT HIMSELF FROM KEVIN". PT WANTS TO GO BACK HOME. ELECTRONEURODIAGNOSTIC TECHNOLOGIST KERWIN AWARE.
--- NOTE | 2017-04-22 15:10 | NUR ---
AT ABOUT 1450 PTS DAUGHTER AMBULATING IN HALLWAY WITH PT STATING "CAN HE GO OUTSIDE TO SMOKE A CIGARETTE? HE ISN'T GOING TO RUN AWAY OR ANYTHING, ESPECIALLY BECAUSE YOU GUYS ARE HOLDING HIM AGAINST HIS WILL". CHARGE NURSE MADE AWARE AND MD SURESH MADE AWARE. SAFETY MONITOR REMAINS IN PLACE.
--- NOTE | 2017-04-22 15:20 | NUR ---
WHEN THIS RN ASKED PTS DAUGHTER IF SHE WANTED TO SPEAK WITH A DOCTOR, PTS DAUGHTER STATED "I DONT WANT TO SPEAK WITH ANY DOCTORS, IM VISITNG MY FATHER THEN GETTING THE HELL OUT OF HERE". SENIOR MATERIALS ANALYST WISHED TO SPEAK WITH PTS DAUGHTER BUT PTS DAUGHTER REFUSED. SAFETY MONITOR REMAINS IN PLACE.
--- NOTE | 2017-04-22 15:23 | NUR ---
Referral received yesterday via casefind. This patient is a 81 year old man, admitted to the hospital on 04/20/17 as a social admission. This patient has had recurrent ED visits, and psychiatric evaluation finds his mental status to wax and wane. He had been driving; his car was (is?) in the ED parking lot. Lives alone; no local family. Patient has been evaluated by, and accepted for admission to Assisted Living Facility in [place] ([facility]). ANticipate Discharge tomorrow.
[2017-04-22 15:26] VITALS: BP 142/76
[2017-04-22 21:52] VITALS: BP 139/81
--- NOTE | 2017-04-23 01:51 | NUR ---
AT APPROX 2330 AFTER REPORT I TRIED TO ENTER PATIENTS ROOM TO FIND HIM STANDING IN ROOM AND ASKING ME WHY I WAS IN HIS ROOM. I TOLD HIM I WAS HIS NURSE AND WAS GONNA ASK HIM SOME QUESTIONS AND A BRIEF ASSESSMENT OF HIM. HE REFUSED ALL ASSESSMENTS AND WITH PROFANITY ASKED ME TO LEAVE HIS ROOM. I PAGED AND ALERTED MD WILEY ROSEN TO WHAT HAD HAPPENED AND MAKE HIM AWARE OF SITUATION. MR HORN HAS A PATIENT SAFETY MONITOR AND SHE WAS WITNESS TO SITUTION AND AWARE OF HOSTILITY. WILL CONTINUE TO MONITOR.
--- NOTE | 2017-04-23 05:57 | Discharge Summary ---
Visit Information Visit Dates Admission Date: 04/20/17 Discharge Date: 04/23/2017 Hospital Course Course Attending Physician: CLINT SERRA MD Primary Care Physician: PATIENT HAS NO PRIMARY CARE DR Consulting Request: Consulting Specialty: Psychiatry Hospital Course: Mr Carey is a 81-year-old gentleman with a PMH of dementia, constipation with multiple emergency visits who presented with complaints of URI symptoms, was noted to be agitated and requested to leave shortly after initial presentation in the emergency room. Records show that he presented to the ER on average every 2 days with complaints of constipation, alternating diarrhea. Currently he has 2 children a son and a daughter, POJoshua is patient's son. Concern for his safety with driving has been raised. VS on admission: BP 135/65, HR 65, RR 18, SPO2 98% on RA, T 98.4. Pertinent physical exam findings on admission: No acute distress, agitated, confused, unable to confirm medications or his own pharmacy, requires recurrent prompting and redirection, AAO 1 (person). RRR, normal S1/S2. Lungs CTA BL. Normal bowel sounds with no tenderness to palpation. Pertinent labs on admission: WBC 10.4, H&H 14.4/44.1, platelets 259, sodium 140, serum 4.9, BUN/Cr CR 12/0.8 Admitted the patient to [facility] for management of the following problems: 1. Constipation 2. Dementia 3. Delirium 4. Tobacco dependence Hospital course: 1. Constipation * Maintain the patient on a regular bowel regimen with senna and Colace titrated for 1-2 bowel movements per day * Encouraged ambulation with noticeable improvement 2. Dementia * Continued on donepezil * The patient was assessed by our in-house psychiatrist with the following assessment: Mental Status Exam Presentation/Appearance: Calm and pleasant. Moderately cooperative with evaluation. Sitting in bed. Orientation: Oriented to self and place, date as Friday in October, as "18" Sensorium: Awake and alert Eye contact: Appropriate Affect: Somewhat blunted Mood: "Fine" Depression: Denied Anxiety: Denied Thought Content: - Denied SI/HI, AH/VH, PI. States and also believes they will not kill themselves. - Denied Hopeless/Helpless Thoughts Thought Process: Linear at times but primarily circumstantial with some confusion Associations: Loose at times but appropriate at others Speech: Repetitive but normal tone and rate Judgment:Poor Insight: Poor Cognition: Memory: Deficits noted Attention/Concentration: Fair Fund of Knowledge: Adequate Abstractions: [place] MMSE: Did not complete today patient refused, yesterday 22 out of 30 indicating mild to moderate cognitive impairment] * Recommendations: Trazodone 50 mg PO Q8 PRN 3. Delirium * Successful management of delirium triggers with the following interventions: Frequent reorientation, minimal nursing/medical procedures during sleep hours, decrease noise in sleeping areas, reduced lighting * Melatonin 10 mg at bedtime 4. Tobacco dependence * Nicotine patch Allergies: Coded Allergies: No Known Allergies (03/20/17) Disposition Summary Disposition Principal Diagnosis: Constipation Additional Diagnosis: Dementia Discharge Disposition: SNF Discharge Instructions General Discharge Information Code Status: Full Code Patient's Diet: Regular diet Patient's Activity: As tolerated Follow-Up Instructions/Appts: Follow-up with her PCP within one week after discharge Please take all medications as directed Medications at Discharge Discharge Medications: Continue taking these medications: Simvastatin (Simvastatin*) 40 MG TABLET 1 Tablet ORAL Every night Qty = 30 Comments: PER PT Triazolam (Triazolam) 0.25 MG TABLET 1 Tablet ORAL Every night Qty = 90 Comments: PER PT Fluticasone Propionate (Fluticasone Propionate) 16 GM SPRAY.SUSP 1 [place] Both sides of nose TWICE DAILY Qty = 16 Comments: PER PT Clopidogrel Bisulfate (Clopidogrel) 75 MG TABLET 1 Tablet ORAL DAILY Qty = 90 Donepezil HCl (Aricept) 10 MG TABLET 1 Tablet ORAL Every night Linaclotide (Linzess) 145 MCG CAPSULE 1 Capsule ORAL DAILY Qty = 90 Sertraline HCl (Sertraline HCl) 100 MG TABLET 1.5 Tablet ORAL DAILY Qty = 90 Sennosides (Senna) 8.6 MG TABLET 1-2 Tablet ORAL TWICE DAILY Qty = 100 Tamsulosin HCl (Flomax) 0.4 MG CAP.ER.24H 1 Capsule ORAL DAILY Qty = 30 Docusate Sodium (Colace) 100 MG CAPSULE 1 Capsule ORAL TWICE DAILY Qty = 60 Polyethylene Glycol 3350 (Miralax) 17 GRAM/DOSE POWDER 17 Gram ORAL TWICE DAILY Qty = 255 Instructions: mix with water, juice, soda, coffee or tea Memantine HCl (Namenda XR) 28 MG CAP.SPR.24 1 Capsule ORAL DAILY Qty = 30 Start taking the following new medications: Trazodone HCl (Trazodone HCl) 50 MG TABLET 1 Tablet ORAL EVERY 8 HOURS NEEDED as needed for Agitation Qty = 60 No Refills Copies To: ABDOULAYE KAUFFMAN APRN
[2017-04-23 06:00] VITALS: BP 134/70
--- NOTE | 2017-04-23 08:03 | PN- Housestaff ---
Subjective Follow-up For: Social Admission Subjective: I have personally seen and examined the patient. Patient is calm today but still wants to go home. Patient will be going to assissted living today. Review of Systems Constitutional: Denies: no symptoms. EENTM: Denies: no symptoms. Cardiovascular: Denies: no symptoms. Respiratory: Denies: no symptoms. Gastrointestinal: Denies: no symptoms. Genitourinary: Denies: no symptoms. Musculoskeletal: Denies: no symptoms. Skin: Denies: no symptoms. Neurological/Psychological: Denies: no symptoms. Objective Last 24 Hrs of Vital Signs/I&O Vital Signs Date Time Temp Pulse Resp B/P B/P Pulse O2 O2 Flow FiO2 Mean Ox Delivery Rate 04/23 06 98.4 60 18 134/70 96 Room Air 04/22 2152 98.8 104 18 139/81 96 04/22 1526 98.0 59 20 142/76 96 Intake & Output 04/23 1600 04/23 0800 04/23 0000 Intake Total 700 Output Total Balance 700 Intake, Oral 700 Physical Exam General Appearance: Alert, Oriented X3, No Acute Distress Other Physical Findings: Skin No rashes, no breakdowns HEENT Atraumatic, PERRLA, EOMI Neck Supple Lymphatic no neck lymphadenopathy Cardiovascular Regular Rate, Normal S1, Normal S2, No Murmurs Lungs Clear to Auscultation, Normal Air Movement Abdomen Normal Bowel Sounds, Soft, No Tenderness, No Hepatospenomegaly, No Masses Neurological Cranial Nerves 3-12 NL Extremities No Clubbing, No Cyanosis, No Edema, Normal Pulses, No Tenderness/ Swelling Vascular Normal Pulses Current Medications: Current Medications Sig/Sherri Start time Last Medication Dose Route Stop Time Status Admin Artificial Tears 2 GTT 4 TIMES/DAY 04/21 1800 AC 04/22 OPH 2051 Cyanocobalamin 250 MCG DAILY 04/21 1000 AC 04/22 PO 105 Docusate Sodium 100 MG BID 04/21 2200 AC 04/22 PO 2051 Enoxaparin Sodium 40 MG DAILY 04/21 1000 AC SC Melatonin 5 MG AT BEDTIME 04/22 2200 AC 04/22 PO 2051 Melatonin 5 MG ONCE PRN 04/20 2330 AC 04/22 PO 003 Nicotine 14 MG Q24 PRN 04/20 2330 AC TOP Ramelteon 8 MG ONCE ONE 04/22 2230 DC 04/22 PO 04/22 2231 223 Senna 187 MG AT BEDTIME 04/21 2200 AC 04/22 PO 2051 Assessment/Plan Assessment: The patient is a 81-year-old male with a past medical history of dementia and constipation being admitted for observation as a safety precaution due to his dementia. Patient states that he has no complaints and wants to be let go. He wants to drive himself. He was very confused when asked about question regarding which pharmacy he uses. He believes that it is currently October. He does note that the years 2016 and at this present. His children Farzad and Jenelle neither want to take custody of their father. The patient agreed to stay if he can be discharged in the morning. He does not have the ability to make decisions at this time. - Patient will be going to the assisted living today. Son agrees with the plan. -No active medical issues at this time. Problem List: 1. Hospital admission due to social situation Pain Ratin Pain Location: None Pain Goal: Remain pain free Pain Plan: None Tomorrow's Labs & Rationales: None(Discharge)
[2017-04-23] MEDS ORDERED: TRAZODONE HCL50 M1 PO (09:14)
[2017-04-23 12:09] VITALS: BP 134/70
== END 2017-04-23 12:31 | DRG 884 ==
LOC: ERH 11:06 → 2NA 22:17 → ERHI 22:17 → ENRESERV 04-21 00:24 → 2NA 04-21 01:46 → ENPENDDIS 04-23 09:28 → 2NA 04-23 12:31
PROVIDERS: Physician Assistant Medical; ADMIT Internal Medicine
DX: F03.90 Unspecified dementia, unspecified severity, without behavioral disturbance, psychotic disturbance, mood disturbance, and anxiety (principal); K59.00 Constipation, unspecified; F05 Delirium due to known physiological condition; E78.5 Hyperlipidemia, unspecified; F17.200 Nicotine dependence, unspecified, uncomplicated
CPT/HCPCS: 2NAP; ERO; 36415; 80307; 81003; G0463; J1200; J1630; J1650